=== PATIENT | female | born 1990 | race Two or more races ===

== ENCOUNTER 2022-02-24 06:51 | Outpatient (REF) | payer OTHER, SELFPAY | END 2022-02-24 06:52 | disposition home or self-care (01) | LOC: HO.HOSX 06:51 | PROVIDERS: Visit Provider Physician Assistant | DX: Z13.89 Encounter for screening for other disorder (principal) ==

== ENCOUNTER 2023-04-24 10:30 | Outpatient (REF) | payer OTHER, SELFPAY ==
--- NOTE | ~2023-04-24 | XR_ITS ---
EXAMINATION: XR SHOULDER, LEFT CLINICAL INFORMATION: Left shoulder pain for one year COMPARISON: None available. TECHNIQUE: AP external rotation, Grashey, scapular Y, and axillary views of the left shoulder. FINDINGS: BONES: Bony structures are intact. There is no focal bone destruction or periosteal reaction seen. JOINTS: Alignment of joints is normal. SOFT TISSUE: Soft tissue is normal. No radiopaque foreign body or abnormal air collection is seen. XR/XR shoulder LT min 2V IMPRESSION: 1. Normal x-rays of left shoulder. No fracture or dislocation or signs of osteomyelitis are found.
[2023-04-24 11:35] LABS: MANUAL DIFF FLAG NO
[2023-04-24 11:45] LABS: Basophils Percent Auto 0.5 % (0-2); Eosinophils Percent Auto 0.5 % (0-4); Hematocrit 41.7 % (37.0-47.0); Hemoglobin 14.3 g/dl (12.0-16.0); Imm Gran Abs Auto 0.02 X10*3/uL (0.00-0.03); Imm Gran Pct Auto 0.4 % (0.0-0.4); Lymphocytes Absolute Auto 1.6 X10*3/uL (1.2-4.9); Lymphocytes Percent Auto 28.2 % (20-40); Mean Corpuscular HGB Conc 34.3 g/dl (31.0-35.0); Mean Corpuscular Hemoglobin 30.7 pg (27.0-33.0); Mean Corpuscular Volume 89.5 fL (80.0-98.0); Mean Platelet Volume 11.3 fL (9.4-12.3); Monocytes Absolute Auto 0.3 X10*3/uL (0.1-1.2); Monocytes Percent Auto 5.8 % (2-11); Neutrophils Absolute Auto 3.7 x10*3/uL (2.0-8.3); Neutrophils Percent Auto 64.6 % (45-73); Platelet Count 190 X10*3/uL (160-400); Red Blood Count 4.66 X10*6/uL (4.20-5.50); Red Cell Distribution Width 12.3 % (11.0-16.0); White Blood Count 5.7 X10*3/uL (4.8-10.8)
[2023-04-24 12:02] LABS: Estimated Average Glucose 97 mg/dL
[2023-04-24 12:08] LABS: Alanine Aminotransferase 24 U/L (0-31); Albumin Level 4.1 g/dL (3.5-5.0); Alkaline Phosphatase 56 U/L (39-117); Anion Gap 11 (12-20); Aspartate Amino Transferase 20 U/L (5-31); Bilirubin Total 0.4 mg/dL (0.0-1.0); Blood Urea Nitrogen 11 mg/dL (9-16); Calcium 9.3 mg/dL (8.4-10.2); Carbon Dioxide 26 mmol/L (22-29); Chloride 105 mmol/L (96-108); Cholesterol 165 mg/dL (<200); Estimated Glomerular Filt Rate > 60; Glucose Random 101 mg/dL (60-115); HDL Cholesterol 61 mg/dL (>40); LDL Cholesterol Calculated 84 mg/dL (<100); Potassium 4.6 mmol/L (3.3-5.1); Sodium 137 mmol/L (135-145); Total Protein 7.4 g/dL (6.5-8.0); Triglycerides 103 mg/dL (<150)
[2023-04-24 12:17] LABS: HIV AB/AG Nonreactive (Nonreactive); HIV Num 1 0.06 S/CO (0.00-0.99)
[2023-04-24 12:24] LABS: TSH reflex Free T4 0.72 uIU/mL (0.32-4.0)
[2023-04-25 14:24] LABS: HCV Log PCR <1.18 NOT DETECTED Log IU/mL (NOT DETECTED); HepC Viral Load <15 NOT DETECTED IU/mL (NOT DETECTED)
[2023-04-25 16:14] LABS: RPR Rapid Plasma Reagin NON-REACTIVE (NON-REACTIVE)
== END 2023-04-24 10:31 | disposition home or self-care (01) ==
LOC: HO.HHCL 10:30
PROVIDERS: Visit Provider Registered Nurse
DX: Z00.00 Encounter for general adult medical examination without abnormal findings (principal)
CPT/HCPCS: 36415; 73030; 80053; 80061; 83036; 84443; 85025; 86592; 87389; 87522

== ENCOUNTER 2023-07-20 14:09 | Outpatient (AMB) | payer OTHER, SELFPAY ==
--- NOTE | 2023-07-20 14:23 | MHC.OFFVIS ---
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 States last year while lifting a 24 pack of soda pack, she felt pain days after and felt better with in the following 6 months. Recently she is feeling the same pain while doing heavy lifting lifting at work. Seen with her PCP who ordered P.T and was doing well. She has pain mostly when sleeping. States she has not reported this to work. She is also using lido patches which helps a little. 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 She reports she was lifting a pack of 24 soda bottles about a year ago and felt pain in her shoulder. She states she had improvement in her pain over the next 6 months however her pain returned recently which comes with doing heavy lifting at work. She was seen by her PCP who ordered physical therapy which she attended as instructed. She currently states she has pain in her shoulder which is aggravated at night. She finds mild relief with lidocaine patches. 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 [facility] Surgical History (Updated 07/20/23 @ 14:30 by ALEKSANDAR Miller) Hx of appendectomy Social History (Updated 07/20/23 @ 14:29 by ALEKSANDAR Miller) Current occupational status: employed Current occupation: [employer]/ rt hand Review of Systems Const All systems reviewed & are unremarkable except as noted in HPI and below Physical Exam Vital Signs: BMI result Body Mass Index 34.7 Const General: cooperative, healthy appearing, comfortable, no acute distress, well developed and alert Orientation/consciousness: patient oriented x3 HEENT Head: Yes normal to inspection, Yes normocephalic and Yes atraumatic Eyes General: appearance normal, both eyes and all related structures Resp Effort & Inspection: normal respiratory effort and able to speak in complete sentences Cardio Rate: regular rate Peripheral pulses: Peripheral pulses 2+ throughout GI Palpation (GI): Soft to palpation Skin Lesions: no lesions Rashes: no rashes Neuro General: patient oriented x3 Extrem Other: Left shoulder normal to inspection. Tenderness over the bicipital groove and along the deltoid region of the shoulder. Forward flexion to 100, external rotation to 90, internal rotation to S1. 5/5 RTC strength. Positive Gómez. NVI. Office Procedures Joint Injection/Drain Joint Injection/Drain Primary Site: left shoulder Prep: site was prepped using aseptic technique, ethochloride spray was applied and injection warnings given Injected: 80 mg of, DepoMedrol, with 8 mL of, 1% plain lidocaine and in the subcromial space Approach Used: posterolateral Procedure: The patient tolerated the procedure well and there was some relief with the local anesthesia Coding 01224 - Glenohumeral/Tronchanteric Bursa/Intraarticular Procedure code (CPT) selection complete Results Reviewed Results Reviewed: XR shoulder LT min 2V 04/24/23 IMPRESSION: 1. Normal x-rays of left shoulder. No fracture or dislocation or signs of osteomyelitis are found. Assessment & Plan Assessment & Plan (1) Bursitis of left shoulder: Code(s): M75.52 - Bursitis of left shoulder Category: Medical Plan We discussed options today which include steroid injection. They did consent to move forward with the left shoulder injection, which was tolerated well. I recommended rest, ice and elevation and OTC anti-inflammatories PRN for discomfort. If symptoms persist or worsens over the next 6-8 weeks, patient will contact the office, otherwise follow-up as needed. Patient Instructions: Scribed for Kandice Ogden PA-C, by Leander Villavicencio district medical examiner, on 07/20/2023 at 2:30 PM EST. IKandice PA-C, have personally reviewed and agree with the information entered by the scribe. Coding Level of Care Code New Pt Level 3 (68490) Diagnoses Bursitis of left shoulder M75.52 CPT Codes Coding - Joint 7: 75417 - Glenohumeral/Tronchanteric Bursa/Intraarticular ([id number])
[2023-07-20 14:24] VITALS: BMI 34.7
== END 2023-07-20 14:57 | disposition home or self-care (01) ==
PROVIDERS: PCP Registered Nurse; Visit Provider Physician Assistant
DX: M75.52 Bursitis of left shoulder (principal)
CPT/HCPCS: 20610; 99203

== ENCOUNTER → 2023-07-20 14:09 | Outpatient (BNVA) | payer OTHER, SELFPAY | PROVIDERS: PCP Registered Nurse; Visit Provider Physician Assistant | DX: M75.52 Bursitis of left shoulder (principal) | CPT/HCPCS: 20610; 99202; J1010 ==

== ENCOUNTER 2023-07-31 17:51 | Outpatient (REF) | payer OTHER, SELFPAY ==
[2023-08-08 06:09] LABS: C. trachomatis RNA TMA NOT DETECTED (NOT DETECTED); N. gonorrhoeae RNA TMA NOT DETECTED (NOT DETECTED)
[2023-08-08 12:49] LABS: HPV mRNA E6/E7 rflx Not Detected (Not Detected)
[2023-08-08 13:42] LABS: Trichomonas (NAAT) NOT DETECTED (NOT DETECTED)
== END 2023-07-31 17:52 | disposition home or self-care (01) ==
LOC: HO.HHCLNP 17:51
PROVIDERS: Visit Provider Registered Nurse
DX: Z12.4 Encounter for screening for malignant neoplasm of cervix (principal)
CPT/HCPCS: 36415; 87491; 87591; 87624; 87661; 88142

== ENCOUNTER 2024-04-09 05:44 | Outpatient (REF) | payer OTHER, SELFPAY ==
--- NOTE | 2024-04-09 | EMG_ITS ---
FINDINGS: Bilateral median and ulnar motor and sensory studies were performed. Bilateral radial sensory and median and lateral antecubital brachial sensory studies were performed and paraspinal muscles were tested with a needle. 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 MD MARCOS Florez/CAPRICE / [phone]
== END 2024-04-09 05:45 | disposition home or self-care (01) ==
LOC: HO.NEURO 05:44
PROVIDERS: PCP Registered Nurse; Visit Provider Registered Nurse
DX: R20.0 Anesthesia of skin (principal); R20.2 Paresthesia of skin
CPT/HCPCS: 95886; 95913

== ENCOUNTER 2024-04-18 08:57 | Outpatient (REF) | payer OTHER, SELFPAY ==
--- OUTSIDE RECORDS SUMMARY | 2024-04-18 11:52 | XMS_ITS | Encounter Summary ---
Author Organization [employer] [facility] Address [address] [place] [address] Care Team Providers Care Separations Scientist Name Role Phone Rosalia Pillai Primary Care Provider Encounter Details Date Type Department Care Team (Late Contact Info) Description 06/06/2022 Telephone [facility] [address] [place], [place] [phone] Rosalia Pillai FNP [address] [place], [place] [phone] Social History Tobacco Use Types Packs/Day Years Used Date Smoking Tobacco: Never Smokeless Tobacco: Never Comments Unknown Sex and Gender Information Value Date Recorded Sex Assigned at Female 01/17/2022 10:40 AM EDT Legal Sex Female 10:40 AM EDT Gender Identity Female 01/17/2022 10:40 AM EDT Sexual Orientation Straight 03/18/2024 9: 55 AM EST COVID-19 Exposure Response Date Recorded In the last 10 days, have yo u been in contact with someone who was confirmed or suspected to have Coronavirus/COVID-19? No / Unsure 06/06/2022 4:36 PM EDT documented as of this encounter Plan of Treatment Upcoming Encounters Date Type Department Care Team (Late Contact Info) Description 05/03/2024 10:00 AM EST Office Visit [facility] [address] [place], [place] [phone] Rosalia Pillai FNP [address] [place], [place] [phone] documented as of this encounter Visit Diagnoses Not on filedocumented in this encounter Care Teams Separations Scientist Relationship Specialty Start Date End Date Rosalia Pillai FNP [address] [place] [phone] PCP - General Family Medicine 02/17/22 documented as of this encounter
--- OUTSIDE RECORDS SUMMARY | 2024-04-18 11:52 | XMS_ITS | Clinical Summary ---
Author Organization [employer] Address [address] [place] [address] Care Team Providers Care Poultry Field Service Technician Name Role Phone Rosalia Pillai CARROLL Primary Care Provider [phone] Allergies No known active allergies Medications Magnesium 400 MG capsule Take 400 mg by mouth at bedtime. 90 capsule 2 4 Active lidocaine (Lidoderm) 5 % patchIndications: Acute pain of left shoulder Apply 1 patch topically if needed each day for moderate pain. Remove & discard patch within 12 hours or as directed by MD. 30 patch 11 4 Active naproxen (Naprosyn) 500 MG tabletIndications :Acute pain of left shoulder Take a tab twice daily with food for 5-7 days, then take up to BID as needed for pain 60 tablet 4 Active famotidine (Pepcid) 20 MG tabletIndications :Gastroesophageal reflux disease, unspecified whether esophagitis present Take 1 tablet (20 mg) by mouth 2 times daily. 180 tablet 3 4 07/31/19 25 Active baclofen (Lioresal) 10 MG tabletIndications :Neck muscle spasm Take one tablet TID PRN 30 tablet 4 Active SUMAtriptan (Imitrex) 25 MG tabletIndications :Other migraine without status migrainosus, not intractable Take 1-2 tablets (25-50 mg) by mouth 1 (one) time if needed for migraine for up to 9 doses. May repeat dose once in 2 hours if no relief. Do not exceed 2 doses in 24 hours. 9 tablet 4 Active lidocaine-priloca ine (Emla) 2.5-2.5 % creamIndications: Chronic right shoulder pain Apply thin layer 2-3 times per day to right shoulder as needed for pain 30 g 3 4 Active doxepin (SINEquan) 10 MG capsuleIndication s:Sleep difficulties Take 1 capsule (10 mg) by mouth at bedtime. 90 capsule 1 4 03/18/20 25 Active ibuprofen 800 MG tabletIndications :Neck muscle spasm Take 1 tablet (800 mg) by mouth 3 times daily for 14 days. 42 tablet 4 03/22/19 25 Diclofenac Sodium 1 % gelIndications:Ne ck muscle spasm Apply 1 g topically if needed in the morning, at noon, and at bedtime (pain). 100 g 4 04/07/19 25 Active Problems Problem Noted Date Diagnosed Date Healthcare maintenance 04/23/2023 Overview (03/21/2024): Pap: NILM, HPV neg 07/31/23 Optometry: referral to [facility] placed 04/21/23 Dental: referral to [facility] Dental 04/21/23 Last PE: 04/21/23 Migraine 01/30/2022 Assessment & Plan (07/31/2023 10:03 AM EDT): -Maintenance: magnesium 400mg nightly -Episodic tx: trial sumatriptan 25-50mg PRN. Reviewed med use and SE -Previous med trials: excedrin, amitriptyline Assessment & Plan (04/23/2023 8:44 AM EST): -Daily headaches, using excedrin -Will trial magnesium 400mg nightly -previously noted benefit with amitriptyline documented in EHR, but appears pt no longer taking. If magnesium not effective, may re-trial amitriptyline Dysmenorrhea 09/18/2015 Resolved Problems Problem Noted Date Diagnosed Date Resolved Date Gallstones 09/18/2015 04/23/2023 Encounters Date Type Department Care Team Description 03/22/2024 [facility] [facility] [employer] [facility] [address] [place] [phone] Rosalia Pillai FNP 03/18/2024 11:30 AM EST Office Visit [facility] [address] [place] [address] Artur Pillaile, LEATHER CRAFTER Chronic right shoulder pain (Primary Dx); Onychauxis; Callus between toes; Numbness and tingling in both hands; Sleep difficulties; Other fatigue; Healthcare maintenance 03/18/2024 Travel 03/18/2024 Telephone [facility] [address] [place] [address] Rachael Masters MA Chart Prep 03/08/2024 3:40 PM EST Office Visit [facility] [address] [place] [address] Lucila Malik NP Neck muscle spasm (Primary Dx); Other migraine without status migrainosus, not intractable 03/08/2024 Travel from Last 3 Months Immunizations Name Administration Dates Next Due Influenza, IIV3, injectable 12/24/2019, 8 Pfizer Covid-19 Vaccine 12+ 04/07/2020, 0 Tdap 04/20/2018,09/18/2015 Family History Medical History Relation Name Comments Pancreatic cancer Maternal Grandfather Eye cancer Maternal Grandmother Hypothyroidism Maternal Grandmother Diabetes type II Mother Hypothyroidism Mother bariatric surgery Mother Diabetes type II Mother's Sister Breast cancer Paternal Grandmother Diabetes Paternal Grandmother Hypothyroidism Sister Relation Name Status Comments Maternal Grandfather Maternal Grandmother Mother Mother's Sister Paternal Grandmother Sister Social History Tobacco Use Types Packs/Day Years Used Date Smoking Tobacco: Never Passive Smoke Exposure: Never Smokeless Tobacco: Never Tobacco Cessation:Counseling Given: Not Answered Depression Answer Date Recorded Patient Health Questionnaire-9 Score 15 04/21/2023 Patient Health Questionnaire-9 Score 15 04/21/2023 Last PHQ-9: Questionnaire Data Not on file 0 04/21/2023 Housing Stability Answer Date Recorded What is your housing situation today? I have sebastián savage 04/12/[address] you li ve. Do you have problems with any of the following? None of the above 04/12/2023 Food Insecurity Answer Date Recorded Within the past 12 months, y ou worried that your food would run out before you got money to buy more: Sometimes True 2023 Within the past 12 months,th e food you bought just didn't last and you didn't have enough money to get more: Sometimes True 04/12/2023 Transportation Answer Date Recorded In the past 12 months, has l ack of transportation kept you from medical appts, meetings, work or from getting things needed for daily living? No 04/12/2023 Utilities Answer Date Recorded In the past 12 months, has t he electric, gas, oil or water company threatened to shut off services in your home? No 04/12/2023 Depression Answer Date Recorded Patient Health Questionnaire-2 Score 2 04/21/2023 Comments Unknown Sex and Gender Information Value Date Recorded Sex Assigned at Female 01/17/2022 10:40 AM EDT Legal Sex Female 10:40 AM EDT Gender Identity Female 01/17/2022 10:40 AM EDT Sexual Orientation Straight 03/18/2024 9: 55 AM EST Last Filed Vital Signs Vital Sign Reading Time Taken Comments Blood Pressure 117/75 03/18/2024 11:30 AM EST Pulse 80 03/18/2024 11:30 AM EST Temperature 36.4 ??C (97.5 ??F) 03/18/2024 11:[address] Respiratory Rate 20 03/18/2024 11:30 AM EST Oxygen Saturation 98% 03/18/2024 11:30 AM EST Inhaled Oxygen Concentration - - Weight 97.1 kg (214 lb) 03/18/2024 11:30 AM EST Height 167.6 cm (5' 6 ) 03/18/2024 11:30 AM EST Body Mass Index 34.54 03/18/2024 11:30 AM EST Plan of Treatment Upcoming Encounters Date Type Department Care Team (Late st Contact Info) Description 05/03/2024 10:00 AM EST Office Visit [facility] [address] [place] [address] Rosalia Pillai FNP [address] [place] [address] Health Maintenance Due Date Last Done Comments Dental Oral Exam 1989 Dental Prophylaxis 1989 Dental X-Ray: Bitewings 1989 Dental X-Ray: Full Mouth 1989 Family Planning (PISQ) 02/15/2004 Hepatitis B Vaccines (1 of 3 - 19+ 3-dose series) 02/15/2008 Depression Monitoring (PHQ-9) 10/20/2023, 04/21/2023 Alcohol/Substance Use Screening 04/21/2024 04/21/2023 Depression Screening 04/21/2024 04/21/2023, 04/21/2023 SDOH Screening 04/21/2024 04/21/2023 Tobacco Screening 07/30/2024 07/31/2023 Influenza Vaccine (#1) 2024 , 12/15/2017 Postponed from 11/19/2023 (Patient Refused) COVID-19 Vaccine (3 - 2023-2 5 season) 2025 04/07/2020, 03/17/2020 Postponed from 11/19/2023 (Patient Refused) Pap Smear 07/30/2026 07/31/2023, 07/31/2023 DTaP/Tdap/Td Vaccines (3 - T d or Tdap) 04/20/2028 04/20/2018, 09/18/2015 Lipid Panel 04/24/2028 04/24/2023, 01/31/2022 Cervical Cancer Screening 07/30/2028 HPV/Cotest 07/30/2028 07/31/2023 Zoster Vaccines (1 of 2) 2039 RSV Patients and Patients Aged 60 years or older (1 - 1-dose 75+ series) 02/15/2064 HIV Screening Completed 04/24/2023, 01/31/2022, 11/18/2021 Hepatitis C Screening Completed 04/24/2023 , 01/31/2022 HIB Vaccines Aged Out No longer eligi ble based on patient's age to complete this topic HPV Vaccines Aged Out No longer eligi ble based on patient's age to complete this topic Hepatitis A Vaccines Aged Out No long er eligible based on patient's age to complete this topic IPV Vaccines Aged Out No longer eligi ble based on patient's age to complete this topic Meningococcal Vaccine Aged Out No eric michael eligible based on patient's age to complete this topic Pneumococcal Vaccine: Pediatrics (0 to 5 Years) and At-Risk Patients (6 to 49) Years) Aged Out No longer eligible b ased on patient's age to complete this topic RSV under 20 months Aged Out No longe r eligible based on patient's age to complete this topic Rotavirus Vaccines Aged Out No longer eligible based on patient's age to complete this topic Procedures Procedure Name Priority Date/Time Associated Diagnosis Comments HPV MRNA E6/E7 REFLEX TO HPV 16, 18/45 Routine 07/31/2023 9:51 AM EDT IMAGE-GUIDED PAP W/AGE BASED SCR,W/CT/NG/TRICH Routine 07/31/2023 9:51 AM EDT Encounter for screening for cervical cancer HEPATITIS C VIRAL RNA, QUANTITATIVE, REAL-TIME PCR Routine 04/24/2023 10:36 AM EST Encounter for routine history and physical examination of adult HIV 1/2 ANTIGEN/ANTIBODY, FOURTH GENERATION W/RFL Routine 04/24/2023 10:36 AM EST Encounter for routine history and physical examination of adult LIPID PANEL, STANDARD Routine 04/24/2023 10:36 AM EST Encounter for routine history and physical examination of adult from Last 3 Months or Most Recently Relevant to Health Maintenance Results * Pap with NG,CT,Trich (07/31/2023 9:51 AM EDT) Trichomonas (NAAT) NOT DETECTED NOT DETECTED [facility] Comment:The analytical perfo rmance characteristics of thisassay have been determined by [employer]. Themodifications have not been cleared or approved bythe FDA. This assay has been validated pursuant to theCLIA regulations and is used for clinical purposes.For additional information, please refer tohttp://education.[employer]faq/Trichomonastma(This link is being provided for information/educational purposes only.)THIS TEST WAS PERFORMED AT:[facility] [place] [id number] FRANK MD CTNG Ref Lab NOT DETECTED NOT DETECTED [facility] NG Ref Lab NOT DETECTED NOT DETECTED [facility] Pap Vial Vaginal structure / Unknown 07/31/2023 9:51 AM EDT 08/04/2023 12:13 PM EDT Narrative [facility] - 08/08/2023 1:42 PM EDT Was previous PAP abnormal? NoClinical Information: NoneCollection Date: [id number]: [id number] by: RACHAEL Shannon: Vagina us Rosalia Pillai [facility] CYTOLOGY ORDERABLES Final Result [facility] [address] [place] [address] [phone] * HPV mRNA E6/E7 w/Reflex to HPV Genotypes 16, 18/45 (07/31/2023 9:51 AM EDT) HPV nRNA E6/E7 Not Detected Not Detected [facility] Comment:Methodology: Transcr iption-Mediated AmplificationThis assay detects E6/E7 viral messenger RNA (mRNA) from 14high-risk HPV types (16,18,31,33,35,39,45,51,52,56,58,59,66,68).Cervical sources are required for HPV testing.If a vaginal source from a patient who has had atotal hysterectomy with removal of cervix wassubmitted, please contact the testing laboratoryfor alternative testing options.For additional information, please refer tohttp://education.[employer]faq/YDI840o7(This link if provided for information/educational purposes only.)THIS TEST WAS PERFORMED AT:[facility] [place] [id number] FRANK MD HPV mRNA E6/E7 [facility] HPV 16 RNA [facility] HPV 18/45 RNA [facility] 07/31/2023 9:51 AM EDT 08/01/2023 8:45 AM EDT us Rosalia Pillai [facility] CYTOLOGY ORDERABLES Final Result Performing Organization Address [facility] [[email or web address]] Co de Phone Number [facility] [address] [place] [phone] * Hepatitis C Viral RNA, Quantitative, Real-Time PCR (04/24/2023 10:36 AM EST) Pathologist [facility] Hepatitis C Viral Load <15 NOT DETECTED NOT DETECTED IU/mL [facility] HCV Log PCR <1.18 NOT DETECTED NOT DETECTED Log IU/mL [facility] Comment:This test was perfor med using Real-Time Polymerase ChainReaction.Reportable Range: 15 IU/mL to 100,000,000 IU/mL(1.18 Log IU/mL to 8.00 Log IU/mL).The analytical performance characteristics of thisassay have been determined by [employer].The modifications have not been cleared or approved bythe FDA. This assay has been validated pursuant to theCLIA regulations and is used for clinical purposes.For more information on this test, go to:http://education.[employer]faq/FGC98w1(This link is being provided for informational/educational purposes only.)THIS TEST WAS PERFORMED AT:[facility] [place] [id number] FRANK MD Blood 04/24/2023 10:3 6 AM EST 04/24/2023 11:23 AM EST Rosalia Pillai [facility] BLOOD ORDERABLES Final Res ult Performing Organization Address City/[facility]/ZIP Co de Phone Number [facility] [address] [place] [phone] * HIV-1/2 Antigen and Antibodies, Fourth Generation, with Reflexes (04/24/2023 10:36 AM EST) Pathologist [facility] HIV AB/AG Nonreactive Nonreactive [facility] Comment:HIV-1 p24 Ag and/or HIV-1/HIV-2 Ab not detected.A test result that is nonreactive does not exclude thepossibility of exposure to or infection with HIV-1 and/orHIV-2. Nonreactive results in this assay for individualswith prior exposure to HIV-1 and/or HIV-2 may be due toantigen and antibody levels that are below the limit ofdetection of this assay.The [employer] HIV Ag/Ab Combo assay result andsupplemental assay results should be interpreted inconjunction with the patient's clinical presentation,history and other laboratory results. If the results areinconsistent with clinical evidence, additional testing issuggested to confirm the result. Blood Venous blood specimen / Unknown 04/24/2023 10:36 AM EST 04/24/2023 11:23 AM EST us Rosalia Pillai [facility] BLOOD ORDERABLES Final Res ult [facility] [address] [place] [address] [phone] * Lipid Panel, Standard (04/24/2023 10:36 AM EST) Triglycerides 103 <150 mg/dL [facility] Comment:Desirable Triglyceri de: less than 150 mg/dLBorderline High Triglyceride 150-199 mg/dLHigh Triglyceride: 200-499 mg/dLVery High Triglyceride: greater than or equal to 5OO mg/dL Cholesterol 165 <200 mg/dL [facility] Comment:Desirable Cholestero l: less than 200 mg/dLBorderline High Cholesterol: 200-239 mg/dLHigh Cholesterol: greater than 239 mg/dL LDL Cholesterol Calculated 84 <100 mg/dL [facility] Comment:Desirable LDL: less than 100 mg/dLNear Optimal/Above Optimal LDL: 110- 129 mg/dLBorderline High LDL: 130-159 mg/dLHigh LDL: 160-189 mg/dLVery High LDL: greater than or equal to 190 mg/dL HDL Cholesterol 61 >40 mg/dL [facility] Comment:Desirable HDL: great er than 40 mg/dL Note: This HDL assay may give artificially low results in patients with liver disease. Blood Venous blood specimen / Unknown 04/24/2023 10:36 AM EST 04/24/2023 11:23 AM EST us Rosalia Pillai [facility] BLOOD ORDERABLES Final Res ult [facility] [address] [place] [address] [phone] from Last 3 Months or Most Recently Relevant to Health Maintenance Insurance [facility] D[facility] - HSN FULL (MEDICAID) Care Teams Poultry Field Service Technician Relationship Specialty Start Date End Date Rosalia Pillai FNP [address] [place] [phone] PCP - General Family Medicine 02/17/22
--- OUTSIDE RECORDS SUMMARY | 2024-04-18 11:52 | XMS_ITS | Encounter Summary ---
Author Organization [employer] Address [address] [facility] 7t [place] [address] Care Team Providers Care Salon Professional Name Role Phone Rosalia Pillai Primary Care Provider [phone] Encounter Details Date Type Department Care Team (Late st Contact Info) Description 03/22/2024 Telephone [employer] [facility] [address] [place] [address] Rosalia Pillai FNP [address] [facility] [place] [id number] Social History Tobacco Use Types Packs/Day Years Used Date Smoking Tobacco: Never Passive Smoke Exposure: Never Smokeless Tobacco: Never Depression Answer Date Recorded Patient Health Questionnaire-9 [...] Orientation Straight 03/18/2024 9: 55 AM EST documented as of this encounter Plan of Treatment Upcoming Encounters Date Type Department Care Team (Late st Contact Info) Description 05/03/2024 10:00 AM EST Office Visit [facility] MED & PEDS [address] [place] [address] Rosalia Pillai FNP [address] [place] [address] documented as of this encounter Visit Diagnoses Not on filedocumented in this encounter Additional Health Concerns Assessment Noted Time PHQ-9 Depression Total Score: 15 024 9:46 AM EST documented as of this encounter Care Teams Salon Professional Relationship Specialty Start Date End Date Rosalia Pillai FNP [address] [place] [address] PCP - General Family Medicine 02/17/22 documented as of this encounter
--- OUTSIDE RECORDS SUMMARY | 2024-04-18 11:52 | XMS_ITS | Encounter Summary ---
Author Organization [employer] Address [address] [place] [address] 7 [place] [address] Care Team Providers Care Machinist Instructor Name Role Phone Rosalia Pillai Primary Care Provider [phone] Reason for Referral * Neurology (Routine) - Closed Specialty Diagnoses / Procedures Referred By Alice guardado Referred To Contact Diagnoses Numbness and tingling in both hands Procedures EMG Rosalia Pillai FNP [address] [place] [address] Phone: tel: fax: [address] Phone: tel: fax: Referral ID Status Reason Start Date Expiration Date Visits Re quested Visits Authorized [id number] Closed 03/18/2024 03/18/2025 1 1 * Consultation (Routine) - Authorized Specialty Diagnoses / Procedures Referred By Alice guardado Referred To Contact Orthopaedic Surgery Diagnoses Chronic right shoulder pain Rosalia Pillai FNP [address] [place] [address] Phone: tel: fax: [facility] [address] [place] [address] Phone: tel: Referral ID Status Reason Start Date Expiration Date Visits Requested Visits Authorized [id number] Authorized Specialty Services Required 03/18/2025 1 1 * Consultation (Routine) - Authorized Specialty Diagnoses / Procedures Referred By Alice guardado Referred To Contact Podiatry Diagnoses Onychauxis Callus between toes Rosalia Pillai FNP [address] [place] [address] Phone: tel: fax: Kojo Walker DPM [address] [address] Phone: tel: fax: Referral ID Status Reason Start Date Expiration Date Visits Requested Visits Authorized [id number] Authorized Specialty Services Required 03/18/2025 1 1 Encounter Details Date Type Department Care Team ([facility] Contact Info) Description 03/18/2024 11:30 AM EST Office Visit [facility] MED & PEDS [address] [place] [address] Rosalia Pillai FNP [address] [place] [address] Chronic right shoulder pain (Primary Dx); Onychauxis; Callus between toes; Numbness and tingling in both hands; Sleep difficulties; Other fatigue; Healthcare maintenance Social History Tobacco Use Types Packs/Day Years [...] AM EST documented as of this encounter Last Filed Vital Signs Vital Sign Reading [...] Mass Index 34.54 03/18/2024 11:30 AM EST documented in this encounter Progress Notes * CARROLL Díaz - 03/18/2024 11:30 AM EST Subjective: Hiral Geller is a 34 y.o. female who presents to the office for a follow up visit. Interim history: Last PCP visit: 07/31/23 for pap Current concerns: Sleep: difficulties with sleep onset and maintenance. Has used magnesium in the past with partial improvement. Right shoulder: pain and discomfort of right shoulder x 3-4 months. Has completed physical therapy for left shoulder, and currently doing exercises at home for right shoulder, but not improving. Interested in ortho consult. Will also prescribe topical lidocaine-prilocaine as has been using OTC lidocaine patches with good effect. Numbness and tingling of fingers of bilateral hands x months. Worsens at night. Right foot: thickening of skin between 4th and 5th digits. Intermittent drainage/pus from area. Also with thickness and discoloration of toe nail 5th digit. Referral to podiatry placed. Past Surgical History: Procedure Laterality Date APPENDECTOMY CHOLECYSTECTOMY Family History Problem Relation Hypothyroidism Mother Other (bariatric surgery) Mother Diabetes type II Mother Hypothyroidism Sister Diabetes type II Mother's Sister Hypothyroidism Maternal Grandmother Eye cancer Maternal Grandmother Pancreatic cancer Maternal Grandfather Breast cancer Paternal Grandmother Diabetes Paternal Grandmother Allergies - NKDA Social History Living - lives with her daughter Employment - [employer] Substance Use - occasional/social alcohol use, denies use of tobacco, opioids, or other substances Sexual history - not current, previous AMAB partner Mental health - denies SI/HI/thoughts of self harm. Protective factors: daughter and samaritan Patient's last menstrual period was 03/04/2024. Reports menses occur every 28-32 days and last for 5-6 days on average. Review of Systems Constitutional: Negative for chills and fever. Respiratory: Negative for cough and wheezing. Cardiovascular: Negative for chest pain and palpitations. Gastrointestinal: Negative for diarrhea, nausea and vomiting. Musculoskeletal: Positive for arthralgias. Negative for joint swelling, neck pain and neck stiffness. Psychiatric/Behavioral: Positive for sleep disturbance. Visit Vitals BP 117/75 (BP Location: Left arm, Patient Position: Sitting, BP Cuff Size: Large adult) Pulse 80 Temp 97.5 ??F (36.4 ??C) (Oral) Resp 20 Ht 5' 6 (1.676 m) Wt 214 lb (97.1 kg) LMP 03/04/2024 SpO2 98% BMI 34.54 kg/m?? Smoking Status Never BSA 2.13 m?? Physical Exam Constitutional: Appearance: Normal appearance. HENT: Head: Atraumatic. Right Ear: External ear normal. Left Ear: External ear normal. Cardiovascular: Rate and Rhythm: Normal rate and regular rhythm. Pulmonary: Effort: Pulmonary effort is normal. Breath sounds: Normal breath sounds. Musculoskeletal: Right shoulder: Tenderness present. No swelling or deformity. Normal range of motion. Comments: Tenderness of right shoulder AC joint. Mild discomfort with shoulder flexion. Skin: Comments: 5th digit right foot: toe nail thickening and discoloration Hypertrophic skin between 4th and 5th digits right foot Neurological: Mental Status: She is alert and oriented to person, place, and time. Psychiatric: Mood and Affect: Mood normal. Behavior: Behavior normal. Problem List Items Addressed This Visit Visit Diagnoses Chronic right shoulder pain - Primary - Not improving despite home PT exercises - Discussed options including XR vs referral to ortho or PT - Shared decision making to proceed with Ortho referral - Cont symptomatic management Relevant Medications lidocaine-prilocaine (Emla) 2.5-2.5 % cream Other Relevant Orders Referral to Orthopaedic Surgery Onychauxis -Included in referral to podiatry Relevant Orders Referral to Podiatry Callus between toes -Between 4th and 5th digits right foot, intermittent symptoms of infection. Referral to podiatry for further eval. Relevant Orders Referral to Podiatry Numbness and tingling in both hands EMG ordered for initial eval Relevant Orders EMG Sleep difficulties - Start doxepin 10mg nightly - Reviewed med safety and SE - Cont sleep hygiene interventions Relevant Medications doxepin (SINEquan) 10 MG capsule Other Relevant Orders TSH W/Reflex to FT4 Comprehensive Metabolic Panel Vitamin D, 25-Hydroxy, Total, Immunoassay Vitamin B12/Folate, Serum Panel CBC auto differential Cortisol Random Other fatigue - Labs including request for cortisol ordered - No acute changes noted Relevant Orders TSH W/Reflex to FT4 Comprehensive Metabolic Panel Vitamin D, 25-Hydroxy, Total, Immunoassay Vitamin B12/Folate, Serum Panel CBC auto differential Cortisol Random Follow up: 6 weeks sleep, sooner PRN documented in this encounter Plan of Treatment Upcoming Encounters Date Type Department Care Team (Late st Contact Info) Description 05/03/2024 10:00 AM EST Office Visit [facility] MED & PEDS [address] [place] [address] Rosalia Pillai FNP [address] [place] [address] Scheduled Orders Name Type Priority Associated Diagnoses Orde r Schedule EMG Neurology Routine Numbness and tingling in both hands Expected: 03/18/2024, Expires: 09/16/2024 TSH W/Reflex to FT4 Lab Routine Sleep difficulties Other fatigue Expected: 03/18/2024 (Approximate), Expires: 03/18/2025 Comprehensive Metabolic Panel Lab Routine Sleep difficulties Other fatigue Expected: 03/18/2024 (Approximate), Expires: 03/18/2025 Vitamin D, 25-Hydroxy, Total, Immunoassay Lab Routine Sleep difficulties Other fatigue Expected: 03/18/2024 (Approximate), Expires: 03/18/2025 Vitamin B12/Folate, Serum Panel Lab Routine Sleep difficulties Other fatigue Expected: 03/18/2024, Expires: 03/18/2025 CBC auto differential Lab Routine Sleep difficulties Other fatigue Expected: 03/18/2024 (Approximate), Expires: 03/18/2025 Cortisol Random Lab Routine Sleep difficulties Other fatigue Expected: 03/18/2024 (Approximate), Expires: 03/18/2025 Scheduled Referrals Name Type Priority Associated Diagnoses Order Schedule Referral to Podiatry Outpatient Referral Routine Onychauxis Callus between toes Expected: 03/18/2024 (Approximate), Expires: 03/18/2025 Referral to Orthopaedic Surgery Outpatient Referral Routine Chronic right shoulder pain Expected: 03/18/2024 (Approximate), Expires: 03/18/2025 documented as of this encounter Visit Diagnoses Diagnosis Chronic right shoulder pain- Primary Pain in joint, shoulder region Onychauxis Other specified disease of nail Callus between toes Numbness and tingling in both hands Sleep difficulties Other fatigue Healthcare maintenance documented in this encounter Additional Health Concerns Assessment Noted Time PHQ-9 Depression Total Score: 15 024 9:46 AM EST documented as of this encounter Care Teams Machinist Instructor Relationship Specialty Start Date End Date Rosalia Pillai FNP [address] [place] [address] PCP - General Family Medicine 02/17/22 documented as of this encounter
--- OUTSIDE RECORDS SUMMARY | 2024-04-18 11:52 | XMS_ITS | Clinical Summary ---
Author Organization [address] [facility] Address [address] [place] [address] Phone Care Team Providers Care Monkey Trainer Name Role Phone Unavailable Primary Care Provider Unavailabl e Allergies No known active allergies Medications Medication Sig Dispensed Refills Start Date End Date Status ibuprofen (ADVIL,MOTRIN) 600 mg tablet Take 600 mg by mouth every 6 hours as needed. Active omeprazole magnesium (PRILOSEC ORAL) Take by mouth. Activ e Social History Tobacco Use Types Packs/Day Years Used Date Smoking Tobacco: Never Assessed Sex and Gender Information Value Date Recorded Sex Assigned at Not on file Gender Identity Not on file Sexual Orientation Not on file Plan of Treatment Upcoming Encounters Date Type Department Care Team ([facility] Contact Info) Description 06/20/2024 9:30 AM EDT Consult Orthopedic Surgery - [place] [address] [phone] Kojo Walker, DPM [address] [address] Health Maintenance Due Date Last Done Comments DTaP,Tdap,and Td Vaccines (1 - Tdap) 02/15/2008 Hepatitis B Vaccines (1 of 3 - 19+ 3-dose series) 02/15/2008 Cervical Cancer Screening: P ap Smear 2010 Depression Screening 02/15/2022 HIV Screening 02/15/2022 Hepatitis C Screening 02/15/2022 Social Influencers of Health Screening 02/15/2022 COVID-19 Vaccine ( - 2023-2 5 season) 2023 Influenza Vaccine (#1) 2023 HIB Vaccines Aged Out No longer eligi [...] on patient's age to complete this topic MMR Vaccines Aged Out No longer eligi ble based on patient's age to complete this topic Meningococcal ACWY Vaccine Aged Out N o longer eligible based on patient's age to complete this topic Pneumococcal Vaccine: Pediat rics (0 to 5 Years) and At-Risk Patients (6 to 64 Years) Aged Out No longer eligible b ased on patient's age to complete this topic RSV Immunization Patients Un gaudencio 20 months Aged Out No longer eligible b ased on patient's age to complete this topic Varicella Vaccines Aged Out No longer eligible based on patient's age to complete this topic
--- OUTSIDE RECORDS SUMMARY | 2024-04-18 11:52 | XMS_ITS | Clinical Summary ---
Author Organization [facility] Address [address] [place] [address] Care Team Providers Care Mangle Press Catcher Name Role Phone Silas Ramirez Primary Care Provider [phone] Source Comments PLEASE NOTE, if this patient is a minor, it may be UNLAWFUL to discuss sensitive information that is contained in these records (such as FAMILY PLANNING, MENTAL HEALTH or SUBSTANCE ABUSE) with the minor patient's parent or other person without the patient's specific authorization.[facility] Allergies No known active allergies Medications ibuprofen (ADVIL,MOTRIN) 600 mg tabletIndications :Flank pain Take 1 Tab by mouth 4 (four) times daily as needed for pain. 60 Tab 1 6 Active omeprazole (PRILOSEC) [address] capsuleIndication s:Generalized abdominal pain Take 1 Cap by mouth every morning before breakfast. Do not crush or chew. 30 Cap 1 6 Active polyethylene glycol (GLYCOLAX, MIRALAX) 17 gram packetIndications :Slow transit constipation Take 17 g by mouth once daily. Dissolve contents of packet in a glass (8 oz) of water. 30 Each 3 6 Active minoxidil (ROGAINE) 2 % external solutionIndicatio ns:Alopecia Apply topically 2 (two) times daily 60 mL 0 7 Active prenat.vits,igor,m an-dhlj-mrvyf per tablet Take 1 Tab by mouth once daily 30 Tab 8 Active acetaminophen (TYLENOL) 500 mg tabletIndications :Acute left-sided low back pain without sciatica Take 2 Tabs by mouth every 6 (six) hours as needed for pain 60 Tab 1 0 Active meloxicam (MOBIC) 7.5 mg tabletIndications :Acute left-sided low back pain without sciatica TAKE 1 TABLET BY MOUTH TWICE DAILY 42 Tab 0 Active SUMAtriptan succinate (IMITREX) 50 mg tabletIndications :Persistent headaches Take 1 Tab by mouth once as needed for migraine for up to 1 dose 30 Tab 0 Active vit-iron fum-folic ac 27 mg iron- 0.8 mg tab Take 1 Tablet by mouth daily 30 Tablet 2 Active Active Problems Problem Noted Date Diagnosed Date History of gestational diabe wali mellitus (GDM), not currently 11/05/2018 Overview (11/05/2018): 11/05/18 - Patient reported that she had an impaired glucose tolerance test at 5 months of . No pharmacological management; lifestyle only and daily blood glucose checks. Family history of diabetes mellitus 11/05/2018 Overview (11/05/2018): 11/05/18 - Patient's mother, paternal grandmother, paternal uncle, and paternal cousin are positive for a history of diabetes. abnormal glucose tolerance of mother 11/05/2018 Overview (11/05/2018): 11/05/18 - Patient was informed that she had glucose intolerance in her 5th trimester of . She is two months post- and was told by a provider that she now has type II diabetes. Class 3 severe obesity due t o excess calories with body mass index (BMI) of 40.0 to 44.9 in adult ([facility]) 09/18/2015 Overview (11/05/2018): 11/05/18 - Patient gave to her first child 2 months ago, is not currently , and has been struggling to obtain exercise regularly given the . Body mass index is 41.34 kg/m??. Counseled on improvement to her Type II diabetes if she loses weight through regular exercise and diet, which she has been adherent too since month 5 of her , when she was determined to have glucose intolerance. Also counseled today on the [facility]'s childcare program, which she will be able to attend in 1 month, when her baby reaches 3 months old. Informed about the wellness center today as well, should the [facility] not work out for her. Gallstones 09/18/2015 Dysmenorrhea 09/18/2015 Immunizations Name Administration Dates Next Due TDAP 09/18/2015 Family History Medical History Relation Name Comments Genetic Diseases/ Defects Brother marfan Genetic Diseases/ Defects Father marfan syndrome Diabetes Mother Hypertension Mother Diabetes Other paternal cousin Diabetes Paternal Grandmother Diabetes Paternal Uncle Relation Name Status Comments Brother Father Mother Other Paternal Grandmother Paternal Uncle Social History Tobacco Use Types Packs/Day Years Used Date Smoking Tobacco: Never Smokeless Tobacco: Never Tobacco Cessation:Counseling Given: Yes Alcohol Use Standard Drinks/Week Comments Yes 0 (1 standard drink = 0.6 oz pur e alcohol) occasional Social Connections Answer Date Recorded Connectedness 0 12/07/2023 Financial Resource Strain Answer Date R ecorded Financial Resource Strain 0 2018 Stress Answer Date Recorded Stress 0 11/05/2018 Physical Activity Answer Date Recorded Physical Activity 0 11/05/2018 Food Insecurity Answer Date Recorded Food 0 12/14/2023 Transportation Needs Answer Date Record ed Transportation 0 11/05/2018 Housing Stability Answer Date Recorded Housing 0 11/05/2018 Safety and Environment Answer Date Julián rded Safety 0 11/05/2018 Utilities Answer Date Recorded Utilities 0 11/05/2018 Employment Answer Date Recorded Stress 0 12/07/2023 Comments No Sex and Gender Information Value Date Recorded Sex Assigned at Female 02/09/2017 10:05 AM PST Legal Sex Female 7:31 AM PDT Gender Identity Female 02/09/2017 10:05 AM PST Sexual Orientation Straight 02/09/2017 10 :05 AM PST 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 Not on file Not on file Last Filed Vital Signs Vital Sign Reading Time Taken Comments Blood Pressure 120/80 11/18/2021 3:33 PM EDT Pulse 89 11/18/2021 3:33 PM EDT Temperature 37.2 ??C (98.9 ??F) 11/18/2021 3:33 PM ED T Respiratory Rate 16 11/12/2021 2:48 PM EDT Oxygen Saturation 95% 11/18/2021 3:33 PM EDT Inhaled Oxygen Concentration - - Weight 96.1 kg (211 lb 14.4 oz) 11/18/2021 3:33 PM EDT Height 167.6 cm (5' 6 ) 11/18/2021 3:33 PM EDT Body Mass Index 34.2 11/18/2021 3:33 PM EDT Plan of Treatment Health Maintenance Due Date Last Done Comments HPV Screening 1989 Hepatitis C Screening 1989 Tobacco Screening 1989 Imm-Hepatitis B (1 of 3 - 19 + 3-dose series) 02/15/2008 Pap Smear 09/17/2018 09/18/2015 Annual Preventive Care Visit 12/04/2018 12/04/2017 Relationship Safety Screening/Counseling 12/04/2018 12/04/2017 Cervical Cancer Screening 01/17/2023 Pap + HPV 01/17/2023 01/17/2018 Lva-YNFEW-17 ( season) 2023 Imm-Influenza (#1) 2023 12/15/2017 Alcohol and Drug Screen 03/20/2024 12/05/19 18, 09/18/2015, 09/18/2015 Depression Annual Screen 03/20/2024 12/04/2017, 07/0 03/2015 Diabetes Screening 11/12/2024 11/12/2021, 0 11/12/2021, 01/31/2020, Additional history exists Hypertension Screening (#1) 11/17/2024 Imm-DTaP/Tdap/Td (3 - Td or Tdap) 04/20/2028 019, 09/18/2015 HIV Screening Completed 11/18/2021 Cervical Ablation/Cold-Knife Conization Discontinued Cervical Cryotherapy Discontinued Colposcopy Discontinued Endometrial Biopsy Discontinued Excision/Leep Discontinued HPV Genotyping Discontinued Vaginal Pap Discontinued Vulvoscopy Discontinued Procedures Procedure Name Priority Date/Time Associated Diagnosis Comments HIV 1/2 AG & AB W/RFLX (4TH GEN) Routine 11/18/2021 4:04 PM EDT Concern about STD in female without diagnosis COMPREHENSIVE METABOLIC PANEL Routine 11/12/2021 3:14 PM EDT History of gestational diabetes from Last 3 Months or Most Recently Relevant to Health Maintenance Results * HIV 1/2 AG & AB W/RFLX (4TH GEN) (11/18/2021 4:04 PM EDT) HIV AG/AB, 4TH GEN NON-REAC TIVE NON-REAC TIVE [facility] Comment: HIV-1 antigen and HIV-1/HIV-2 antibodies were not detected. There is no laboratory evidence of HIV infection. PLEASE NOTE: This information has been disclosed to you from records whose confidentiality may be protected by state law. ??If your state requires such protection, then the state law prohibits you from making any further disclosure of the information without the specific written consent of the person to whom it pertains, or as otherwise permitted by law. A general authorization for the release of medical or other information is NOT sufficient for this purpose. ?? For additional information please refer to http://education.PaperFlies/faq/YWD802 (This link is being provided for informational/ educational purposes only.) The performance of this assay has not been clinically validated in patients less than 2 years old. Blood Blood / Unknown 11/18/2021 4 :04 PM EDT 11/18/2021 4:05 PM EDT Mena Oscar [facility] LAB - BLOOD DRAW Final Re sult [facility] [address] [address], [facility] [address] [address] * COMPREHENSIVE METABOLIC PANEL (11/12/2021 3:14 PM EDT) Pathologist [facility] GLUCOSE 97 65 - 99 mg/dL [facility] Comment: ?Fasting reference interval UREA NITROGEN (BUN) 16 7 - 25 mg/dL [facility] CREATININE (blood) 0.76 0.50 - 0.97 mg/dL [facility] EGFR 107 > OR = 60 mL/min/1 .73m2 [facility] Comment: The eGFR is based on the CKD-EPI 2020 equation. To calculate the new eGFR from a previous Creatinine or Cystatin C result, go to https://www.kidney.org/professionals/ kdoqi/gfr%5Fcalculator BUN/CREATININE RATIO NOT APPLICABLE 6 - 22 [facility] SODIUM 137 135 - 146 mmol/L [facility] POTASSIUM 4.1 3.5 - 5.3 mmol/L [facility] CHLORIDE 102 98 - 110 mmol/L [facility] CARBON DIOXIDE 26 20 - 32 mmol/L [facility] CALCIUM 9.7 8.6 - 10.2 mg/dL [facility] PROTEIN, TOTAL 7.1 6.1 - 8.1 g/dL [facility] ALBUMIN 4.3 3.6 - 5.1 g/dL [facility] GLOBULIN 2.8 1.9 - 3.7 g/dL (calc) [facility] ALBUMIN/GLOBUL IN RATIO 1.5 1.0 - 2.5 (calc) [facility] BILIRUBIN, TOTAL 0.3 0.2 - 1.2 mg/dL [facility] ALKALINE PHOSPHATASE 47 31 - 125 U/L [facility] AST 13 10 - 30 U/L [facility] ALT 18 6 - 29 U/L [facility] Blood Blood / Unknown 11/12/2021 3 :14 PM EDT 11/12/2021 3:15 PM EDT Domo Tovar PA-C LAB - BLOOD DRAW Final Result [facility] [address] [address], [facility] [address] [address] from Last 3 Months or Most Recently Relevant to Health Maintenance Insurance [employer] Care Teams Mangle Press Catcher Relationship Specialty Start Date End Date Silas Ramirez PA [address] [place] [address] PCP - General Internal Medicine 02/15/17
[2024-04-18 14:01] LABS: MANUAL DIFF FLAG NO
[2024-04-18 14:20] LABS: Basophils Percent Auto 0.5 % (0-2); Eosinophils Percent Auto 0.6 % (0-4); Hematocrit 40.7 % (37.0-47.0); Hemoglobin 13.8 g/dl (12.0-16.0); Imm Gran Abs Auto 0.01 X10*3/uL (0.00-0.03); Imm Gran Pct Auto 0.2 % (0.0-0.4); Lymphocytes Absolute Auto 1.8 X10*3/uL (1.2-4.9); Lymphocytes Percent Auto 27.5 % (20-40); Mean Corpuscular HGB Conc 33.9 g/dl (31.0-35.0); Mean Corpuscular Hemoglobin 30.3 pg (27.0-33.0); Mean Corpuscular Volume 89.5 fL (80.0-98.0); Mean Platelet Volume 11.8 fL (9.4-12.3); Monocytes Absolute Auto 0.5 X10*3/uL (0.1-1.2); Monocytes Percent Auto 7.2 % (2-11); Neutrophils Absolute Auto 4.2 x10*3/uL (2.0-8.3); Platelet Count 170 X10*3/uL (160-400); Red Blood Count 4.55 X10*6/uL (4.20-5.50); Red Cell Distribution Width 12.6 % (11.0-16.0); White Blood Count 6.5 X10*3/uL (4.8-10.8)
[2024-04-18 14:43] LABS: Alanine Aminotransferase 23 U/L (0-31); Alkaline Phosphatase 52 U/L (39-117); Anion Gap 10 (12-20); Aspartate Amino Transferase 28 U/L (5-31); Bilirubin Total 0.6 mg/dL (0.0-1.0); Blood Urea Nitrogen 14 mg/dL (9-16); Calcium 8.8 mg/dL (8.4-10.2); Carbon Dioxide 25 mmol/L (22-29); Chloride 109 mmol/L (96-108); Estimated Glomerular Filt Rate > 60; Glucose Random 91 mg/dL (60-115); Potassium 4.5 mmol/L (3.3-5.1); Sodium 139 mmol/L (135-145); Total Protein 7.3 g/dL (6.5-8.0)
[2024-04-18 15:00] LABS: TSH reflex Free T4 0.59 uIU/mL (0.32-4.0); Vitamin D 25-OH Total 28.5 ng/mL (>30)
[2024-04-18 15:08] LABS: Folate 14.7 ng/mL (> or = 4.0); Vitamin B12 364 pg/mL (200-900)
== END 2024-04-18 08:58 | disposition home or self-care (01) ==
LOC: HO.CHCLDS 08:57
PROVIDERS: Visit Provider Registered Nurse
DX: G47.9 Sleep disorder, unspecified (principal); R53.83 Other fatigue
CPT/HCPCS: 36415; 80053; 82306; 82533; 82607; 82746; 84443; 85025

== ENCOUNTER 2024-04-19 08:24 | Outpatient (AMB) | payer OTHER, SELFPAY ==
--- NOTE | 2024-04-19 08:32 | MHC.OFFVIS ---
Vital Signs 04/19/24 08:44 Height 5 ft 6 in Weight 215 lb BMI 34.7 Intake Visit Reasons: new prob Rt shoulder pain Intake Note: Hiral is a 34 year old right hand dominant female who presents today for a new problem visit of right shoulder pain. Patient was last seen for her left shoulder on 07/20/23 and an injection was given. Patient reports her pain has been present since the summer time and believes it is caused from overcompensating her left shoulder. 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 States spasms from her ear down to her shoulder and towards her back. No traumatic injury. No previous tx. Finds relief ibuprofen. Allergies No Known Allergies Allergy (Verified 04/19/24 08:34) Medication List - Last Reconciled 04/19/24 by Kandice Ogden PA-C doxepin mg PO ibuprofen mg PO 3XD sumatriptan succinate mg PO HPI HPI new prob Rt shoulder pain: Details: 34 yo female presents to the office today for right shoulder pain. She denies injury, pain has been present for over 6 months. She states she has pain which is worse at night. She is waking up multiple times during the night due to the pain. She has discomfort with bringing her arm to her face. 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 No treatment to date. She had EMG done on 04/09/24 due to ongoing n/t in bilat lower ext. PFSH Surgical History (Updated 07/20/23 @ 14:30 by ALEKSANDAR Miller) Hx of appendectomy Social History (Updated 07/20/23 @ 14:29 by ALEKSANDAR Miller) Current occupational status: employed Current occupation: [employer]/ rt hand Review of Systems Const All systems reviewed & are unremarkable except as noted in HPI and below Physical Exam Const General: cooperative and no acute distress Orientation/consciousness: patient oriented x3 Resp Effort & Inspection: normal respiratory effort and able to speak in complete sentences Cardio Peripheral pulses: Peripheral pulses 2+ throughout Neuro General: patient oriented x3 Extrem Other: Right shoulder normal to inspection she has full range of motion in all planes. She has tenderness over the proximal biceps tendon and a positive Gómez. Neurovascularly intact. Bilat wrist normal to inspection. Tenderness over the carpal canal. Numbness and tingling over the median nerve distribution of the right hand. Able to make a full fist and fully extend all fingers. Positive Tinel's. Office Procedures AMB Joint Injection/Aspiration Joint Injection/Aspiration Primary Site: right shoulder Prep: site was prepped using aseptic technique Injected: 80 mg of, DepoMedrol, with 8 mL of, 1% plain lidocaine and in the subcromial space Approach Used: posterolateral Procedure: The patient tolerated the procedure well and there was some relief with the local anesthesia Coding 51670 - Glenohumeral/Tronchanteric Bursa/Intraarticular Procedure code (CPT) selection complete Results Reviewed Results Reviewed: Xrays were obtained in the office today and personally reviewed by me of the right shoulder shoulder mild ac joint oa EMG/NCS 04/09/[address] Dunn IMPRESSION: Bilateral early stage median neuropathy across carpal tunnel, mildly affecting sensory components. Assessment & Plan Assessment & Plan (1) Bicipital tendinitis, right shoulder: Code(s): M75.21 - Bicipital tendinitis, right shoulder Category: Medical (2) Cervical myofascial pain syndrome: Code(s): M79.18 - Myalgia, other site Category: Medical (3) Bilateral carpal tunnel syndrome: Code(s): G56.03 - Carpal tunnel syndrome, bilateral upper limbs Category: Medical Plan We discussed options today which include physical therapy and steroid injection in the right shoulder. She did consent to right shoulder injection today which she tolerated well. I did place an order for physical therapy to work on range of motion rotator cuff and periscapular stabilization of the right shoulder also to work on some cervical stabilization and range of motion techniques as well. She was also fit for bilateral comfort wrist splints as her EMG was significant for early carpal tunnel syndrome. I we will refer her to our hand providers for further evaluation of her carpal tunnel syndrome. I did explain to her that further treatment on her carpal tunnel may resolve those symptoms however if there is some neck pathology she may have some residual numbness due to this. My hope is that physical therapy will help to resolve this to some extent and also relieve her shoulder pain. If symptoms persist or worsen over the next 6-8 weeks in her right shoulder she will contact our office otherwise follow up as needed. Orders: Orders XR shoulder RT min 2V Today M25.511 - Pain in right shoulder Coding Level of Care Code Est Pt Level 4 (48151) Complex EM visit Add On G2211 Diagnoses Bicipital tendinitis, right shoulder M75.21 Cervical myofascial pain syndrome M79.18 Bilateral carpal tunnel syndrome G56.03 CPT Codes Coding - Joint 7: 16412 - Glenohumeral/Tronchanteric Bursa/Intraarticular ([id number])
[2024-04-19 08:44] VITALS: BMI 34.7
== END 2024-04-19 09:06 | disposition home or self-care (01) ==
PROVIDERS: PCP Registered Nurse; Visit Provider Physician Assistant
DX: M75.21 Bicipital tendinitis, right shoulder (principal); M79.18 Myalgia, other site; G56.03 Carpal tunnel syndrome, bilateral upper limbs
CPT/HCPCS: 20610; 99214

== ENCOUNTER → 2024-04-19 08:26 | Outpatient (BNV) | payer OTHER, SELFPAY | PROVIDERS: Visit Provider Radiology Diagnostic Radiology | DX: M25.511 Pain in right shoulder (principal) | CPT/HCPCS: 73030 ==

== ENCOUNTER 2024-04-19 08:41 | Outpatient (REF) | payer OTHER, SELFPAY ==
--- NOTE | ~2024-04-19 | XR_ITS ---
EXAMINATION: XR SHOULDER, RIGHT CLINICAL INFORMATION: M25.511 - Pain in right shoulder COMPARISON: None. TECHNIQUE: Three views of the right shoulder. FINDINGS: Normal bone mineralization. No fractures, dislocation, or suspicious bone lesion. Normal alignment. Glenohumeral joint appears normal. AC joint appears normal. Mildly laterally downsloping acromion without spur. Subacromial space is preserved. Remainder the bony and soft tissue structures appear normal. XR/XR shoulder RT min 2V IMPRESSION: Normal right shoulder. Electronically signed by: Ronald Major MD 04/19/2024 08:40 AM EST
--- OUTSIDE RECORDS SUMMARY | 2024-04-22 08:57 | XMS_ITS | Clinical Summary ---
Author Organization [facility] Address [address] [place] [address] Phone Care Team Providers Care Medicine Man Name Role Phone Unavailable Primary Care Provider [...] Upcoming Encounters Date Type Department Care Team ([facility] Contact Info) Description 06/20/2024 9:30 AM EDT Consult Orthopedic Surgery - [place] [phone] [phone] Kojo Walker, DPM [address] [address] Health Maintenance Due Date Last Done Comments [...]
--- OUTSIDE RECORDS SUMMARY | 2024-04-22 08:57 | XMS_ITS | Encounter Summary ---
Author Organization [email or web address] [facility] Address [address] [facility] [address] [place] [address] Care Team Providers Care Lcac Radar Operator/Navigator Name Role Phone Rosalia Pillai Primary Care Provider [phone] Encounter Details Date Type Department Care Team (Late Contact Info) Description 06/06/2022 Telephone [facility] MEDICINE [address] [place], [place] [phone] Rosalia Pillai FNP [address] [place], [place] [phone] Social History Tobacco Use Types Packs/Day Years [...] Description 05/03/2024 10:00 AM EST Office Visit [facility] CHC MED & PEDS [address] [place], [place] [phone] Rosalia Pillai FNP [address] [place], [place] [phone] documented as of this encounter Visit Diagnoses Not on filedocumented in this encounter Care Teams Lcac Radar Operator/Navigator Relationship Specialty Start Date End Date Rosalia Pillai FNP [address] [place] [phone] PCP - General Family Medicine 02/17/22 documented as of this encounter
--- OUTSIDE RECORDS SUMMARY | 2024-04-22 08:57 | XMS_ITS | Clinical Summary ---
Author Organization [employer] Address [address] [facility] [address] [place] [address] Care Team Providers Care Party Plan Sales Agent Name Role Phone Rosalia Pillai CARROLL Primary Care Provider [phone] Allergies No known active allergies Medications Magnesium [...] 90 capsule 1 4 03/18/20 25 Active Diclofenac Sodium 1 % gelIndications:Ne ck muscle spasm Apply 1 g topically if needed in the morning, at noon, and at bedtime (pain). 100 g 4 04/07/19 25 Active Problems Problem Noted Date Diagnosed Date Healthcare maintenance 04/23/2023 Overview (03/21/2024): Pap: NILM, HPV neg 07/31/23 Optometry: referral to [facility] Eye Care placed 04/21/23 Dental: referral to [facility] Dental 04/21/23 Last PE: 04/21/23 [...] Encounters Date Type Department Care Team Description 04/21/2024 Telephone [facility] MED & PEDS [address] [place] [address] Rosalia Pillai FNP EMG Results 03/22/2024 Telephone [facility] [address] [place] [phone] Rosalia Pillai FNP 03/18/2024 11:30 AM EST Office Visit [facility] [address] [place] [address] Rosalia Pillai, RAIL MAINTENANCE WORKER Chronic right shoulder pain (Primary Dx); Onychauxis; Callus between toes; Numbness and tingling in both hands; Sleep difficulties; Other fatigue; Healthcare maintenance 03/18/2024 Travel 03/18/2024 Telephone [facility] MED & PEDS [address] [place] [address] Chey Masters MA Chart Prep 03/08/2024 3:40 PM EST Office Visit [facility] WALK[facility] [address] [place] [address] Lucila Malik NP Neck muscle spasm (Primary [...] Description 05/03/2024 10:00 AM EST Office Visit [facility] CHC MED & PEDS [address] [place] [address] Rosalia Pillai FNP [address] [place] [address] Health Maintenance Due Date Last Done Comments Dental Oral Exam 1989 Dental Prophylaxis 1989 Dental X-Ray: Bitewings 1989 Dental X-Ray: Full Mouth 1989 Alcohol/Substance Use Screening 2001 Family Planning (PISQ) 02/15/2004 Hepatitis B Vaccines (1 of 3 - 19+ 3-dose series) 02/15/2008 Depression Monitoring (PHQ-9) 10/20/2023, 04/21/2023 Depression Screening 04/21/2024 04/21/2023, 04/21/2023 SDOH [...] Procedure Name Priority Date/Time Associated Diagnosis Comments CORTISOL RANDOM Routine 04/18/2024 8:58 AM EST Sleep difficulties Other fatigue CBC WITH AUTO DIFFERENTIAL Routine 04/18/2024 8:58 AM EST Sleep difficulties Other fatigue VITAMIN B12/FOLATE, SERUM PANEL Routine 04/18/2024 8:58 AM EST Sleep difficulties Other fatigue VITAMIN D,25-OH,TOTAL,IA Routine 04/18/2024 8:58 AM EST Sleep difficulties Other fatigue COMPREHENSIVE METABOLIC PANEL Routine 04/18/2024 8:58 AM EST Sleep difficulties Other fatigue TSH W/REFLEX TO FT4 Routine 04/18/2024 8 :58 AM EST Sleep difficulties Other fatigue HPV MRNA E6/E7 REFLEX TO HPV 16, [...] Recently Relevant to Health Maintenance Results * Cortisol Random (04/18/2024 8:58 AM EST) Cortisol Random 8.0 ug/dL [facility] Comment:Reference Range*: Be fore 10 am 6.2-19.4 ug/dL After 5 pm 2.3-11.9 ug/dL*Please interpret above results accordingly.This test was performed using the Zapata chemiluminescentmethod. Values obtained from different assay methods cannotbe used interchangeably.Patients receiving fludrocortisone, prednisolone orprednisone may show artificially elevated cortisol valuesdue to cross-reactivity. 04/18/2024 8:58 AM EST 04/18/2024 1:58 PM EST Rosalia Pillai [facility] BLOOD ORDERABLES Final Res ult [facility] [address] [place] [phone] * (ABNORMAL) Vitamin D, 25-Hydroxy, Total, Immunoassay (04/18/2024 8:58 AM EST) Vitamin D 25-OH Total 28.5(L) >30 ng/mL [facility] Comment:Health Based Referen ce Values*< 20 ng/mL Whkkliszw47-11 ng/mL Insufficient> 30 ng/mL Sufficient*Sonu CRUM. N Engl J Med. 2007;357:266-280Care must be taken in interpreting Vitamin D results fromdifferent laboratories and methodologies. Published datademonstrated that results from patients undergoinghemodialysis may show a negative bias when tested withvarious automated 25-OH vitamin D assays when compared toLC-MS/MS.When testing samples from patients whose predominant form ofVitamin D is Vitamin D2, such as patients receiving VitaminD2 supplementation, results that are subtherapeutic shouldbe confirmed with another method such as LC-MS/MS. Blood Venous blood specimen / Unknown 04/18/2024 8:58 AM EST 04/18/2024 2:01 PM EST Rosalia Pillai [facility] BLOOD ORDERABLES Final Res ult Performing Organization Address City/[facility] Co de Phone Number [facility] [address] [place] [phone] * Vitamin B12/Folate, Serum Panel (04/18/2024 8:58 AM EST) Vitamin B12 364 200 - 900 pg/mL [facility] Comment:NORMAL 200-900 PG/ML INDETERMINATE 160-199 PG/ML DEFICIENT < 160 PG/ML Folate 14.7 > or = 4.0 ng/mL [facility] Comment:Reference Values:> o r = 4.0 ng/mL< 4.0 ng/mL suggests folate deficiency Methotrexate, aminopterin and folinic acid(leucovorin) are chemotherapeutic agents whose molecularstructures are similar to folate; therefore, the Architectfolate assay cannot be used for patients using these drugs. Blood Venous blood specimen / Unknown 04/18/2024 8:58 AM EST 04/18/2024 1:58 PM EST us Rosalia Pillai [facility] LAB BLOOD ORDERABLES Final Res ult Performing Organization Address [facility] de Phone Number [facility] [address] [place] [phone] * TSH W/Reflex to FT4 (04/18/2024 8:58 AM EST) TSH reflex Free T4 0.59 0.32 - 4.0 uIU/mL [facility] Blood Venous blood specimen / Unknown 04/18/2024 8:58 AM EST 04/18/2024 2:01 PM EST Rosalia Pillai RAIL MAINTENANCE WORKER LAB BLOOD ORDERABLES Final Res ult Performing Organization Address [facility] Co de Phone Number [facility] [address] [place] [phone] * CBC auto differential (04/18/2024 8:58 AM EST) White Blood Count 6.5 4.8 - 10.8 X10*3/uL [facility] Red Blood Count 4.55 4.20 - 5.50 X10*6/uL [facility] Hemoglobin 13.8 12.0 - 16.0 g/dl [facility] Hematocrit 40.7 37.0 - 47.0 % [facility] Mean Corpuscular Volume 89.5 80.0 - 98.0 fL [facility] Mean Corpuscular Hemoglobin 30.3 27.0 - 33.0 pg [facility] Mean Corpuscular HGB Conc 33.9 31.0 - 35.0 g/dl [facility] Red Cell Distribution Width 12.6 11.0 - 16.0 % [facility] Platelet Count 170 160 - 400 X10*3/uL [facility] Mean Platelet Volume 11.8 9.4 - 12.3 fL [facility] Neutrophils Percent Auto 64.0 45 - 73 % [facility] Imm Gran Pct Auto 0.2 0.0 - 0.4 % [facility] Lymphocytes Percent Auto 27.5 20 - 40 % [facility] Monocytes Percent Auto 7.2 2 - 11 % [facility] Eosinophils Percent Auto 0.6 0 - 4 % [facility] Basophils Percent Auto 0.5 0 - 2 % [facility] NRBC Pct Auto 0.0 0.0 - 0.2 /100WBC [facility] Neutrophils Absolute Auto 4.2 2.0 - 8.3 x10*3/uL [facility] Imm Gran Abs Auto 0.01 0.00 - 0.03 X10*3/uL [facility] Lymphocytes Absolute Auto 1.8 1.2 - 4.9 X10*3/uL [facility] Monocytes Absolute Auto 0.5 0.1 - 1.2 X10*3/uL [facility] Eosinophils Absolute Auto 0.0 0.0 - 0.4 X10*3/uL [facility] Basophils Absolute Auto 0.0 0.0 - 0.2 X10*3/uL [facility] NRBC Abs Auto 0.000 0.0 - 0.012 X10*3/uL [facility] Blood Venous blood specimen / Unknown 04/18/2024 8:58 AM EST 04/18/2024 1:58 PM EST us Rosalia Pillai RAIL MAINTENANCE WORKER LAB BLOOD ORDERABLES Final Res ult [facility] [address] [place], [place] [phone] * (ABNORMAL) Comprehensive Metabolic Panel (04/18/2024 8:58 AM EST) Sodium 139 135 - 145 mmol/L [facility] Potassium 4.5 3.3 - 5.1 mmol/L [facility] Chloride 109(H) 96 - 108 mmol/L [facility] Carbon Dioxide 25 22 - 29 mmol/L [facility] Anion Gap 10(L) 12 - 20 [facility] Urea Nitrogen (BUN) 14 9 - 16 mg/dL [facility] Creatinine, Serum 0.77 0.5 - 1.4 mg/dL [facility] Estimated Glomerular Filt Rate >60 [facility] Comment:Chronic Kidney Disea se: Estimated GFR < 60 mL/min/1.48r4Pxnqct Kidney Disease: Estimated GFR < 15 mL/min/1.73m2 Glucose 91 60 - 115 mg/dL [facility] Calcium 8.8 8.4 - 10.2 mg/dL [facility] Bilirubin, Total 0.6 0.0 - 1.0 mg/dL [facility] Aspartate Amino Transferase 28 5 - 31 U/L [facility] Alanine Aminotransferase 23 0 - 31 U/L [facility] Total Protein 7.3 6.5 - 8.0 g/dL [facility] Albumin Level 4.0 3.5 - 5.0 g/dL [facility] Alkaline Phosphatase 52 39 - 117 U/L [facility] Blood Venous blood specimen / Unknown 04/18/2024 8:58 AM EST 04/18/2024 2:01 PM EST Rosalia Pillai RAIL MAINTENANCE WORKER LAB BLOOD ORDERABLES Final Res ult [facility] [address] [place] [address] [phone] * Pap with NG,CT,Trich (07/31/2023 9:51 AM EDT) Trichomonas (NAAT) NOT DETECTED NOT DETECTED [facility] Comment:The analytical perfo rmance characteristics of thisassay have been determined by [employer]. Themodifications have not been cleared or approved bythe FDA. This assay has been validated pursuant to theCLIA regulations and is used for clinical purposes.For additional information, please refer tohttp://education.Your Dollar Matters/faq/Trichomonastma(This link is being provided for information/educational purposes only.)THIS TEST WAS PERFORMED AT:[facility] [place] [phone] FRANK MD CTNG Ref Lab NOT DETECTED NOT DETECTED [facility] NG Ref Lab NOT DETECTED NOT DETECTED [facility] Pap Vial Vaginal structure / Unknown 07/31/2023 9:51 AM EDT 08/04/2023 12:13 PM EDT Narrative [facility] - 08/08/2023 1:42 PM EDT Was previous PAP abnormal? NoClinical Information: NoneCollection Date: [id number]: [id number] by: CHEY ERAZOource: Vagina us Rosalia Pillai RAIL MAINTENANCE WORKER LAB CYTOLOGY ORDERABLES Final Result [facility] [address] [place] [address] [phone] * HPV mRNA E6/E7 w/Reflex to HPV Genotypes 16, 18/45 (07/31/2023 9:51 AM EDT) HPV nRNA E6/E7 Not Detected Not Detected [facility] Comment:Methodology: Transcr iption-Mediated AmplificationThis assay detects E6/E7 viral messenger RNA (mRNA) from 14high-risk HPV types (16,18,31,33,35,39,45,51,52,56,58,59,66,68).Cervical sources are required for HPV testing.If a vaginal source from a patient who has had atotal hysterectomy with removal of cervix wassubmitted, please contact the testing laboratoryfor alternative testing options.For additional information, please refer tohttp://education.[employer]/faq/PFV067n4(This link if provided for information/educational purposes only.)THIS TEST WAS PERFORMED AT:[facility] [place] [phone] FRANK MD HPV mRNA E6/E7 [facility] HPV 16 RNA [facility] HPV 18/45 RNA [facility] 07/31/2023 9:51 AM EDT 08/01/2023 8:45 AM EDT Rosalia Pillai [facility] CYTOLOGY ORDERABLES Final Result [facility] [address] [place] [phone] * Hepatitis C Viral RNA, Quantitative, Real-Time PCR (04/24/2023 10:36 AM EST) Hepatitis C Viral Load <15 NOT DETECTED NOT DETECTED IU/mL [facility] HCV Log PCR <1.18 NOT DETECTED NOT DETECTED Log IU/mL [facility] Comment:This test was perfor med using Real-Time Polymerase ChainReaction.Reportable Range: 15 IU/mL to 100,000,000 IU/mL(1.18 Log IU/mL to 8.00 Log IU/mL).The analytical performance characteristics of thisassay have been determined by [employer].The modifications have not been cleared or approved bythe FDA. This assay has been validated pursuant to theCLIA regulations and is used for clinical purposes.For more information on this test, go to:http://education.walkby.Every1Mobile/faq/NZJ50m0(This link is being provided for informational/educational purposes only.)THIS TEST WAS PERFORMED AT:[facility] [place] [phone] FRANK MD Blood 04/24/2023 10:3 6 AM EST 04/24/2023 11:23 AM EST Rosalia Pillai RAIL MAINTENANCE WORKER LAB BLOOD ORDERABLES Final Res ult Performing Organization Address [facility]/ZIP Co de Phone Number [facility] [address] [place] [phone] * HIV-1/2 Antigen and Antibodies, Fourth Generation, with Reflexes (04/24/2023 10:36 AM EST) HIV AB/AG Nonreactive Nonreactive [facility] Comment:HIV-1 p24 Ag and/or HIV-1/HIV-2 Ab not detected.A test result that is nonreactive does not exclude thepossibility of exposure to or infection with HIV-1 and/orHIV-2. Nonreactive results in this assay for individualswith prior exposure to HIV-1 and/or HIV-2 may be due toantigen and antibody levels that are below the limit ofdetection of this assay.The [employer] HIV Ag/Ab Combo assay result andsupplemental assay results should be interpreted inconjunction with the patient's clinical presentation,history and other laboratory results. If the results areinconsistent with clinical evidence, additional testing issuggested to confirm the result. Blood Venous blood specimen / Unknown 04/24/2023 10:36 AM EST 04/24/2023 11:23 AM EST Rosalia Antoninoeyad RAIL MAINTENANCE WORKER LAB BLOOD ORDERABLES Final Res ult Performing Organization Address [facility]/ZIP Co de Phone Number [facility] [address] [place] [phone] * Lipid Panel, Standard (04/24/2023 10:36 AM EST) Triglycerides 103 <150 mg/dL [facility] Comment:Desirable Triglyceri de: less than 150 mg/dLBorderline High Triglyceride 150-199 mg/dLHigh Triglyceride: 200-499 mg/dLVery High Triglyceride: greater than or equal to 5OO mg/dL Cholesterol 165 <200 mg/dL [facility] Comment:Desirable Cholestero l: less than 200 mg/dLBorderline High Cholesterol: 200-239 mg/dLHigh Cholesterol: greater than 239 mg/dL LDL Cholesterol Calculated 84 <100 mg/dL [facility] Comment:Desirable LDL: less than 100 mg/dLNear Optimal/Above Optimal LDL: 110- 129 mg/dLBorderline High LDL: 130-159 mg/dLHigh LDL: 160-189 mg/dLVery High LDL: greater than or equal to 190 mg/dL HDL Cholesterol 61 >40 mg/dL [facility] Comment:Desirable HDL: great er than 40 mg/dL Note: This HDL assay may give artificially low results in patients with liver disease. Blood Venous blood specimen / Unknown 04/24/2023 10:36 AM EST 04/24/2023 11:23 AM EST us Rosalia Pillai [facility] BLOOD ORDERABLES Final Res ult [facility] [address] [place] [phone] from Last 3 Months or Most Recently Relevant to [place] [phone] [facility] - [facility] FULL (MEDICAID) Care Teams Party Plan Sales Agent Relationship Specialty Start Date End Date Rosalia Pillai FNP [address] [place] [phone] PCP - General Family Medicine 02/17/22
--- OUTSIDE RECORDS SUMMARY | 2024-04-22 08:57 | XMS_ITS | Encounter Summary ---
Author Organization [employer] Address [address] [facility] [address] [place] [address] Care Team Providers Care Bilingual Recruiter Name Role Phone Rosalia Pillai Primary Care Provider [phone] Reason for Visit * Reason Onset Date Comments EMG Results 04/21/2024 Encounter Details Date Type Department Care Team ([facility] Contact Info) Description 04/21/2024 Telephone [facility] [address] [place] [address] Rosalia Pillai FNP [address] [place] [address] EMG Results Social History Tobacco Use Types Packs/Day Years [...] AM EST documented as of this encounter Miscellaneous Notes * Telephone Encounter - CARROLL Díaz - 04/21/2024 3:11 PM EST ADD: already referred to hand surgeon through [facility] Ortho, and wrist splints sent during ortho consult 04/19/24. Will remove from team RN inbox. * Telephone Encounter - CARROLL Díaz - 04/21/2024 3:04 PM EST Please call Hiral to let her know that I have reviewed the results of the nerve conduction study ofboth arms, and it did demonstrate the beginning stages of bilateral carpal tunnel syndrome. We can either start by trying wrist splints at night to help alleviate some of the pain and pressure, or I can refer her directly to the hand specialist for consideration of other options. Please let me know which she would be interested in. Thanks! documented in this encounter Plan of Treatment Upcoming Encounters Date Type Department Care Team (Late st Contact Info) Description 05/03/2024 10:00 AM EST Office Visit [facility] [address] [place] [address] Rosalia Pillai FNP [address] [place] [address] documented as of this encounter Visit Diagnoses Not on filedocumented in this encounter Additional Health Concerns Assessment Noted Time PHQ-9 Depression Total Score: 15 024 9:46 AM EST documented as of this encounter Care Teams Bilingual Recruiter Relationship Specialty Start Date End Date Rosalia Pillai FNP [address] [place] [address] PCP - General Family Medicine 02/17/22 documented as of this encounter
== END 2024-04-19 08:42 | disposition home or self-care (01) ==
LOC: HO.HOSX 08:41
PROVIDERS: Visit Provider Physician Assistant
DX: M25.511 Pain in right shoulder (principal); M75.21 Bicipital tendinitis, right shoulder; M79.18 Myalgia, other site; G56.03 Carpal tunnel syndrome, bilateral upper limbs
CPT/HCPCS: 20610; 73030; 99212; J1010; J2003

== ENCOUNTER 2024-06-28 13:18 | Outpatient (REF) | payer SELFPAY ==
--- OUTSIDE RECORDS SUMMARY | 2024-06-28 13:43 | XMS_ITS | Encounter Summary ---
Author Organization [employer] [facility] Address [address] [place] [address] 7[address] [place] [address] Care Team Providers Care Diversity Intern Name Role Phone Rosalia Pillai Primary Care Provider [phone] Encounter Details Date Type Department Care Team (Late st Contact Info) Description 06/06/[address] [facility] [address] [place] [address] Rosalia Pillai FNP [address] [place] [address] Social History Tobacco Use Types Packs/Day Years [...] as of this encounter Plan of Treatment Not on file documented as of this encounter Visit Diagnoses Not on filedocumented in this encounter Care Teams Diversity Intern Relationship Specialty Start Date End Date Rosalia Pillai FNP [address] [place] [address] PCP - General Family Medicine 02/17/22 documented as of this encounter
--- OUTSIDE RECORDS SUMMARY | 2024-06-28 13:43 | XMS_ITS | Clinical Summary ---
Author Organization [employer] Address [address] [facility] 7t [place] [address] Care Team Providers Care Director Of Development Name Role Phone Rosalia Pillai CARROLL Primary Care Provider [phone] Allergies No known active allergies Medications SUMAtriptan (Imitrex) 25 MG tabletIndications :Other migraine [...] 90 capsule 1 4 03/18/20 25 Active baclofen (Lioresal) 10 MG tabletIndications :Neck muscle spasm Take one tablet TID PRN 30 tablet 2 5 Active famotidine (Pepcid) 20 MG tabletIndications :Gastroesophageal reflux disease, unspecified whether esophagitis present Take 1 tablet (20 mg) by mouth 2 times daily. 180 tablet 3 5 05/03/19 26 Active lidocaine (Lidoderm) 5 % patchIndications: Bicipital tendinitis, right shoulder Apply 1 patch topically if needed each day for moderate pain. Remove & discard patch within 12 hours or as directed by . 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 Conservative management: wrist splints with good response Assessment & Plan (05/06/2024 11:56 AM EST): Scheduled for upcoming consult with [facility] Ortho - hand specialist Vitamin D insufficiency 05/06/2024 Overview (05/06/2024): Lab Results Component Value Date [id number] 28.5 (L) 04/18/2024 - Plan to start OT Vit D supplement Apr 2024 Bicipital tendinitis, right shoulder 05/06/2024 Overview (05/06/2024): Followed by [facility]o S/p shoulder injection Mar 2024 Referred to physical therapy Assessment & Plan (05/06/2024 12:02 PM EST): - Initial physical therapy consult pending - Symptoms aggravated by repetitive movement and heavy lifting at work - reports able to tolerate as long as work day maximum 10 hours - letter generated. Sleep difficulties 05/06/2024 Assessment & Plan (05/06/2024 12:04 PM EST): - Good response to doxepin 10mg nightly, denies med SE - Previous tx: magnesium - Cont sleep hygiene interventions Healthcare maintenance 04/23/2023 Overview (03/21/2024): Pap: NILM, HPV neg 07/31/23 Optometry: referral to [facility] Eye Care placed 04/21/23 Dental: referral to [facility] Dental 04/21/23 Last PE: 04/21/23 [...] Encounters Date Type Department Care Team Description 05/03/2024 10:00 AM EST Office Visit [facility] [address] [place] [address] Rosalia Pillai FNP Epigastric abdominal pain (Primary Dx); Neck muscle spasm; Gastroesophageal reflux disease, unspecified whether esophagitis present; Bilateral carpal tunnel syndrome; Vitamin D insufficiency; Bicipital tendinitis, right shoulder; Sleep difficulties 05/03/2024 Travel 05/02/2024 Telephone [facility] [address] [place] [address] Chey Masters MA Chart Prep 04/24/[address] [facility] [address] [place] [address] [phone] Zulma Crow RN 04/21/2024 Telephone [facility] [address] [place] [address] Rosalia Pillai FNP EMG Results from Last 3 Months Immunizations Name Administration [...] Answer Date Recorded Patient Health Questionnaire-9 Score 8 05/03/2024 Patient Health Questionnaire-9 Score 8 05/03/2024 Last PHQ-9: Questionnaire Data Not on file 0 05/03/2024 Housing Stability Answer Date Recorded What is your housing situation today? I have sebastián savage 05/03/[address] you li ve. Do you have problems with any of the following? None of the above 05/03/2024 Food Insecurity Answer Date Recorded Within the past 12 months, y ou worried that your food would run out before you got money to buy more: Never True 05/03/2024 Within the past 12 months,th e food you bought just didn't last and you didn't have enough money to get more: Never True Transportation Answer Date Recorded In the past 12 months, has l ack of transportation kept you from medical appts, meetings, work or from getting things needed for daily living? No 05/03/2024 Utilities Answer Date Recorded In the past 12 months, has t he electric, gas, oil or water company threatened to shut off services in your home? No 05/03/2024 Depression Answer Date Recorded Patient Health Questionnaire-2 Score 2 05/03/2024 Internet Access Answer Date Recorded Internet Access Q1 Yes 05/03/2024 Internet Access Q2 Not on file 05/03/2024 Comments Unknown Sex and Gender Information Value Date Recorded Sex Assigned at Female 01/17/2022 10:40 AM EDT Legal Sex Female 10:40 AM EDT Gender Identity Female 01/17/2022 10:40 AM EDT Sexual Orientation Straight 03/18/2024 9: 55 AM EST Last Filed Vital Signs Vital Sign Reading Time Taken Comments Blood Pressure 115/72 05/03/2024 10:07 AM EST Pulse 64 05/03/2024 10:07 AM EST Temperature 36.6 ??C (97.9 ??F) 05/03/2024 10:[address] Respiratory Rate 18 05/03/2024 10:07 AM EST Oxygen Saturation 98% 05/03/2024 10:07 AM EST Inhaled Oxygen Concentration - - Weight 98.1 kg (216 lb 3.2 oz) 05/03/2024 10:07 AM EST Height 167.6 cm (5' 6 ) 05/03/2024 10:07 AM EST Body Mass Index 34.9 05/03/2024 10:07 AM EST Plan of Treatment Health Maintenance Due Date Last Done Comments Dental Oral Exam 1989 Dental Prophylaxis 1989 Dental X-Ray: Bitewings 1989 Dental X-Ray: Full Mouth 1989 Alcohol/Substance Use Screening 2001 Family Planning (PISQ) 02/15/2004 Hepatitis B Vaccines (1 of 3 - 19+ 3-dose series) 02/15/2008 Tobacco Screening 07/30/2024 07/31/2023 Influenza Vaccine (#1) 2024 , 12/15/2017 Postponed from 11/19/2023 (Patient Refused) COVID-19 Vaccine (3 - 2023-2 5 season) 2025 04/07/2020, 03/17/2020 Postponed from 11/19/2023 (Patient Refused) Depression Screening 05/03/2025 05/03/2024, 05/03/2024 SDOH Screening 05/03/2025 05/03/2024 Pap Smear 07/30/2026 07/31/2023, 07/31/2023 DTaP/Tdap/Td Vaccines [...] 8:58 AM EST) Cortisol Random 8.0 ug/dL [facility] Comment:Reference Range*: Be fore 10 am 6.2-19.4 ug/dL After 5 pm 2.3-11.9 ug/dL*Please interpret above results accordingly.This test was performed using the Betify chemiluminescentmethod. Values obtained from different assay methods cannotbe used interchangeably.Patients receiving fludrocortisone, prednisolone orprednisone may show artificially elevated cortisol valuesdue to cross-reactivity. 04/18/2024 8:58 AM EST 04/18/2024 1:58 PM EST us Rosalia Pillai [facility] BLOOD ORDERABLES Final Res ult [facility] [address] [place] [address] [phone] * (ABNORMAL) Vitamin D, 25-Hydroxy, Total, Immunoassay (04/18/2024 8:58 AM EST) Vitamin D 25-OH Total 28.5(L) >30 ng/mL [facility] Comment:Health Based Referen ce Values*< 20 ng/mL [id number] ng/mL Insufficient> 30 ng/mL Sufficient*Sonu CRUM. N [...] EST 04/18/2024 2:01 PM EST Rosalia Pillai [facility] BLOOD ORDERABLES Final Res ult Performing Organization Address [facility] Co de Phone Number [facility] [address] [place] [phone] * Vitamin B12/Folate, Serum Panel (04/18/2024 8:58 AM EST) Vitamin B12 364 200 - 900 pg/mL [facility] Comment:NORMAL 200-900 PG/ML INDETERMINATE 160-199 PG/ML DEFICIENT < 160 PG/ML Folate 14.7 > or = 4.0 ng/mL [facility] Comment:Reference Values:> o r = 4.0 ng/mL< 4.0 ng/mL suggests folate deficiency Methotrexate, aminopterin and folinic acid(leucovorin) are chemotherapeutic agents whose molecularstructures are similar to folate; therefore, the Architectfolate assay cannot be used for patients using these drugs. Blood Venous blood specimen / Unknown 04/18/2024 8:58 AM EST 04/18/2024 1:58 PM EST Rosalia Pillai [facility] BLOOD ORDERABLES Final Res ult Performing Organization Address [facility] Co de Phone Number [facility] [address] [place] [phone] * TSH W/Reflex to FT4 (04/18/2024 8:58 AM EST) TSH reflex Free T4 0.59 0.32 - 4.0 uIU/mL [facility] Blood Venous blood specimen / Unknown 04/18/2024 8:58 AM EST 04/18/2024 2:01 PM EST us Rosalia Pillai [facility] BLOOD ORDERABLES Final Res ult [facility] [address] [place], [place] [phone] * CBC auto differential (04/18/2024 8:58 AM EST) White Blood Count 6.5 4.8 - 10.8 X10*3/uL [facility] Red Blood Count 4.55 4.20 - 5.50 X10*6/uL [facility] Hemoglobin 13.8 12.0 - 16.0 g/dl [facility] Hematocrit 40.7 37.0 - 47.0 % [facility] Mean Corpuscular Volume 89.5 80.0 - 98.0 fL [facility] Mean Corpuscular Hemoglobin 30.3 27.0 - 33.0 pg [facility] Mean Corpuscular HGB Conc 33.9 31.0 - 35.0 g/dl [facility] Red Cell Distribution Width 12.6 11.0 - 16.0 % [facility] Platelet Count 170 160 - 400 X10*3/uL [facility] Mean Platelet Volume 11.8 9.4 - 12.3 fL [facility] Neutrophils Percent Auto 64.0 45 - 73 % [facility] Imm Gran Pct Auto 0.2 0.0 - 0.4 % [facility] Lymphocytes Percent Auto 27.5 20 - 40 % [facility] Monocytes Percent Auto 7.2 2 - 11 % [facility] Eosinophils Percent Auto 0.6 0 - 4 % [facility] Basophils Percent Auto 0.5 0 - 2 % [facility] NRBC Pct Auto 0.0 0.0 - 0.2 /100WBC [facility] Neutrophils Absolute Auto 4.2 2.0 - 8.3 x10*3/uL [facility] Imm Gran Abs Auto 0.01 0.00 - 0.03 X10*3/uL [facility] Lymphocytes Absolute Auto 1.8 1.2 - 4.9 X10*3/uL [facility] Monocytes Absolute Auto 0.5 0.1 - 1.2 X10*3/uL [facility] Eosinophils Absolute Auto 0.0 0.0 - 0.4 X10*3/uL [facility] Basophils Absolute Auto 0.0 0.0 - 0.2 X10*3/uL [facility] NRBC Abs Auto 0.000 0.0 - 0.012 X10*3/uL [facility] Blood Venous blood specimen / Unknown 04/18/2024 8:58 AM EST 04/18/2024 1:58 PM EST us Rosalia Antoninoeyad CARDIOLOGY RN LAB BLOOD ORDERABLES Final Res ult [facility] [address] [place] [phone] * (ABNORMAL) Comprehensive Metabolic Panel (04/18/2024 8:58 AM EST) Sodium 139 135 - 145 mmol/L [facility] Potassium 4.5 3.3 - 5.1 mmol/L [facility] Chloride 109(H) 96 - 108 mmol/L [facility] Carbon Dioxide 25 22 - 29 mmol/L [facility] Anion Gap 10(L) 12 - 20 [facility] Urea Nitrogen (BUN) 14 9 - 16 mg/dL [facility] Creatinine, Serum 0.77 0.5 - 1.4 mg/dL [facility] Estimated Glomerular Filt Rate >60 [facility] Comment:Chronic Kidney Disea se: Estimated GFR < 60 mL/min/1.72l9Sfafmn Kidney Disease: Estimated GFR < 15 mL/min/1.73m2 Glucose 91 60 - 115 mg/dL [facility] Calcium 8.8 8.4 - 10.2 mg/dL [facility] Bilirubin, Total 0.6 0.0 - 1.0 mg/dL [facility] Aspartate Amino Transferase 28 5 - 31 U/L [facility] Alanine Aminotransferase 23 0 - 31 U/L [facility] Total Protein 7.3 6.5 - 8.0 g/dL [facility] Albumin Level 4.0 3.5 - 5.0 g/dL [facility] Alkaline Phosphatase 52 39 - 117 U/L [facility] Blood Venous blood specimen / Unknown 04/18/2024 8:58 AM EST 04/18/2024 2:01 PM EST Rosalia Pillai [facility] BLOOD ORDERABLES Final Res ult Performing Organization Address [facility] de Phone Number [facility] [address] [place] [address] [phone] * Pap with NG,CT,Trich (07/31/2023 9:51 AM EDT) [facility] Signature Trichomonas (NAAT) NOT DETECTED NOT DETECTED [facility] Comment:The analytical perfo rmance characteristics of thisassay have been determined by [employer]. Themodifications have not been cleared or approved bythe FDA. This assay has been validated pursuant to theCLIA regulations and is used for clinical purposes.For additional information, please refer tohttp://education.[employer]/faq/Trichomonastma(This link is being provided for information/educational purposes only.)THIS TEST WAS PERFORMED AT:[employer] [place] [phone] FRANK MD CTNG Ref Lab NOT DETECTED NOT DETECTED [facility] NG Ref Lab NOT DETECTED NOT DETECTED [facility] Pap Vial Vaginal structure / Unknown 07/31/2023 9:51 AM EDT 08/04/2023 12:13 PM EDT Narrative [facility] - 08/08/2023 1:42 PM EDT Was previous PAP abnormal? NoClinical Information: NoneCollection Date: [id number]: [id number] by: CHEY Shannon: Vagina Rosalia Pillai CARDIOLOGY RN LAB CYTOLOGY ORDERABLES Final Result Performing Organization Address [facility]/ZIP Co de Phone Number [facility] [address] [place] [address] [phone] * HPV mRNA E6/E7 w/Reflex to HPV Genotypes 16, 18/45 (07/31/2023 9:51 AM EDT) HPV nRNA E6/E7 Not Detected Not Detected [facility] Comment:Methodology: Transcr iption-Mediated AmplificationThis assay detects E6/E7 viral messenger RNA (mRNA) from 14high-risk HPV types (16,18,31,33,35,39,45,51,52,56,58,59,66,68).Cervical sources are required for HPV testing.If a vaginal source from a patient who has had atotal hysterectomy with removal of cervix wassubmitted, please contact the testing laboratoryfor alternative testing options.For additional information, please refer tohttp://education.[employer]Def[employer]/faq/ZAS251i0(This link if provided for information/educational purposes only.)THIS TEST WAS PERFORMED AT:[facility] [place] [phone] FRANK MD HPV mRNA E6/E7 [facility] HPV 16 RNA [facility] HPV 18/45 RNA [facility] 07/31/2023 9:51 AM EDT 08/01/2023 8:45 AM EDT Rosalia Pillai [facility] CYTOLOGY ORDERABLES Final Result [facility] [address] [place] [phone] * Hepatitis C Viral RNA, Quantitative, Real-Time PCR (04/24/2023 10:36 AM EST) Pathologist [facility] Hepatitis C Viral Load <15 NOT DETECTED NOT DETECTED IU/mL [facility] HCV Log PCR <1.18 NOT DETECTED NOT DETECTED Log IU/mL [facility] Comment:This test was perfor med using Real-Time Polymerase ChainReaction.Reportable Range: 15 IU/mL to 100,000,000 IU/mL(1.18 Log IU/mL to 8.00 Log IU/mL).The analytical performance characteristics of thisassay have been determined by [employer].The modifications have not been cleared or approved bythe FDA. This assay has been validated pursuant to theCLIA regulations and is used for clinical purposes.For more information on this test, go to:http://education.[employer]Defender/faq/OMT00g1(This link is being provided for informational/educational purposes only.)THIS TEST WAS PERFORMED AT:[facility] [place] [phone] FRANK MD Blood 04/24/2023 10:3 6 AM EST 04/24/2023 11:23 AM EST Rosalia Pillai [facility] LAB BLOOD ORDERABLES Final Res ult [facility] [address] [place] [phone] * HIV-1/2 Antigen and Antibodies, Fourth Generation, with Reflexes (04/24/2023 10:36 AM EST) Pathologist [facility] HIV AB/AG Nonreactive Nonreactive [facility] Comment:HIV-1 p24 Ag and/or HIV-1/HIV-2 Ab not detected.A test result that is nonreactive does not exclude thepossibility of exposure to or infection with HIV-1 and/orHIV-2. Nonreactive results in this assay for individualswith prior exposure to HIV-1 and/or HIV-2 may be due toantigen and antibody levels that are below the limit ofdetection of this assay.The [employer] HIV Ag/Ab Combo assay result andsupplemental assay results should be interpreted inconjunction with the patient's clinical presentation,history and other laboratory results. If the results areinconsistent with clinical evidence, additional testing issuggested to confirm the result. Blood Venous blood specimen / Unknown 04/24/2023 10:36 AM EST 04/24/2023 11:23 AM EST us Rosalia Pillai CARDIOLOGY RN LAB BLOOD ORDERABLES Final Res ult Performing Organization Address [facility] Co de Phone Number [facility] [address] [place] [address] [phone] * Lipid Panel, Standard (04/24/2023 10:36 AM EST) Triglycerides 103 <150 mg/dL [facility] Comment:Desirable Triglyceri de: less than 150 mg/dLBorderline High Triglyceride 150-199 mg/dLHigh Triglyceride: 200-499 mg/dLVery High Triglyceride: greater than or equal to 5OO mg/dL Cholesterol 165 <200 mg/dL [facility] Comment:Desirable Cholestero l: less than 200 mg/dLBorderline High Cholesterol: 200-239 mg/dLHigh Cholesterol: greater than 239 mg/dL LDL Cholesterol Calculated 84 <100 mg/dL [facility] Comment:Desirable LDL: less than 100 mg/dLNear Optimal/Above Optimal LDL: 110- 129 mg/dLBorderline High LDL: 130-159 mg/dLHigh LDL: 160-189 mg/dLVery High LDL: greater than or equal to 190 mg/dL HDL Cholesterol 61 >40 mg/dL [facility] Comment:Desirable HDL: great er than 40 mg/dL Note: This HDL assay may give artificially low results in patients with liver disease. Blood Venous blood specimen / Unknown 04/24/2023 10:36 AM EST 04/24/2023 11:23 AM EST us Rosaliaeliazar Pillai CARDIOLOGY RN LAB BLOOD ORDERABLES Final Res ult Performing Organization Address [facility]/ZIP Co de Phone Number [facility] [address] [place] [address] [phone] from Last 3 Months or Most Recently Relevant to Health Maintenance Insurance [facility] BCBS PPO DENTAL - HSN FULL (MEDICAID) Care Teams Director Of Development Relationship Specialty Start Date End Date Rosalia Pillai FNP [address] [place] [address] PCP - General Family Medicine 02/17/22
--- OUTSIDE RECORDS SUMMARY | 2024-06-28 13:43 | XMS_ITS | Clinical Summary ---
Author Organization [address] [place] [address] [place] [phone] Phone Care Team Providers Care Solution Design And Analysis Manager Name Role Phone Unavailable Primary Care Provider Unavailabl e Allergies No known active allergies Medications ibuprofen (ADVIL,MOTRIN) 600 mg tablet Take 600 mg by mouth every 6 hours as needed. Active omeprazole magnesium (PRILOSEC ORAL) Take by mouth. Active Encounters Date Type Department Care Team Description 06/20/2024 9:30 AM EDT Consult Orthopedic Surgery [facility] [address] [place] [phone] Kojo Walker DPM Acquired hammer toe of right foot (Primary Dx); Onychogryphosis; Corns and callosities; Dermatophytosis of nail from Last 3 Months Social History Tobacco Use Types Packs/Day Years Used Date Smoking Tobacco: Never Assessed Comments Unknown Sex and Gender Information Value Date Recorded Sex Assigned at Not on file Legal Sex Female 10:13 AM EST Gender Identity Not on file Sexual Orientation Not on file Last Filed Vital Signs Vital Sign Reading Time Taken Comments Blood Pressure - - Pulse - - Temperature - - Respiratory Rate - - Oxygen Saturation - - Inhaled Oxygen Concentration - - Weight 97.1 kg (214 lb) 06/20/2024 9:45 AM EDT Height 167.6 cm (5' 6 ) 06/20/2024 9:45 AM EDT Body Mass Index 34.54 06/20/2024 9:45 AM EDT Plan of Treatment Health Maintenance Due Date Last Done Comments Hepatitis B Vaccines (1 of 3 - 19+ 3-dose series) 02/15/2008 Cervical Cancer Screening: P ap Smear 2010 Hepatitis C Screening 02/15/2022 Social Influencers of Health Screening 02/15/2022 COVID-19 Vaccine (3 - 2023-2 5 season) 2023 04/07/2020, 03/17/2020 Influenza Vaccine (Season Ended) 2024 12/24/2019, 12/15/2017 Depression Screening 05/03/2025 05/03/2024 DTaP,Tdap,and Td Vaccines (3 - Td or Tdap) 04/20/2028 04/20/2018, 09/18/2015 Cholesterol Screening (Lipid Panel) 04/24/2028 04/24/2023, 11/05/2018 HIV Screening Completed 04/24/2023 HIB Vaccines Aged Out No longer eligi [...] patient's age to complete this topic Meningococcal B Vaccine Aged Out No l onger eligible based on patient's age to complete this topic Pneumococcal Vaccine: Pediatrics (0 to 5 Years) and At-Risk Patients (6 to 64 Years) Aged Out No longer eligible b ased on patient's age to complete this topic RSV Immunization Patients Under 20 months Aged Out No longer eligible b ased on patient's age to complete this topic Varicella Vaccines Aged Out No longer eligible based on patient's age to complete this topic Insurance [place] [id number]
--- OUTSIDE RECORDS SUMMARY | 2024-06-28 13:43 | XMS_ITS | Clinical Summary ---
Author Organization [facility] Address [address] [place] [address] Care Team Providers Care Propulsion Engineer Name Role Phone Silas Ramirez Primary Care Provider [phone] Source Comments PLEASE NOTE, if this patient [...] daily 60 mL 0 7 Active prenat.vits,igor,m [id number] per tablet Take 1 Tab by mouth [...] of diabetes. abnormal glucose tolerance of mother ([facility]) 11/05/2018 Overview (11/05/2018): 11/05/18 - Patient was informed that she had glucose intolerance in her 5th trimester of . She is two months post- and was told by a provider that she now has type II diabetes. Class 3 severe obesity due t o excess calories with body mass index (BMI) of 40.0 to 44.9 in adult ([facility]) 09/18/2015 Overview (11/05/2018): 11/05/18 - Patient gave to her first child 2 months ago, is not currently , and has been struggling to obtain exercise regularly given the infant. Body mass index is 41.34 kg/m??. Counseled on improvement to her Type II diabetes if she loses weight through regular exercise and diet, which she has been adherent too since month 5 of her , when she was determined to have glucose intolerance. Also counseled today on the [facility]'s childcare program, which she will be able to attend in 1 month, when her baby reaches 3 months old. Informed about the wellness center today as well, should the [facility] not work out for her. Gallstones 09/18/2015 Dysmenorrhea 09/18/2015 Immunizations Immunization Administration Dates Next Due TDAP 09/18/2015 Family [...] Health Maintenance Due Date Last Done Comments Anxiety Screening 1989 HPV Screening 1989 Hepatitis C Screening 1989 Tobacco Screening 1989 Imm-Hepatitis B (1 of 3 - 19 + 3-dose series) 02/15/2008 Pap Smear 09/17/2018 09/18/2015 Annual Preventive Care Visit 12/04/2018 12/04/2017 Relationship Safety Screening/Counseling 12/04/2018 12/04/2017 Cervical Cancer Screening 01/17/2023 Pap + HPV 01/17/2023 01/17/2018 [id number] () 11/19/2023 Imm-Influenza (#1) 2023 12/15/2017 Alcohol and Drug Screen 03/20/2024 12/05/19 18, 09/18/2015, 09/18/2015 Depression Annual Screen 03/20/2024 12/04/2017, 0703/2015 Diabetes Screening 11/12/2024 11/12/2021, 0 11/12/2021, 01/31/2020, [...] AG/AB, 4TH GEN NON-REAC TIVE NON-REAC TIVE Seeder Comment: HIV-1 antigen and HIV-1/HIV-2 antibodies were [...] ?? For additional information please refer to http://education.EMOSpeech/faq/EXF330 (This link is being provided for informational/ educational purposes only.) The performance of this assay has not been clinically validated in patients less than 2 years old. Blood Blood / Unknown 11/18/2021 4 :04 PM EDT 11/18/2021 4:05 PM EDT Mena Oscar [facility]- LAB - BLOOD DRAW Final Re sult [facility] [address] [id number], [facility] [address] [address] * COMPREHENSIVE METABOLIC PANEL (11/12/2021 3:14 PM EDT) Pathologist [facility] GLUCOSE 97 65 - 99 mg/dL Seeder Comment: ?Fasting reference interval UREA NITROGEN (BUN) 16 7 - 25 mg/dL [facility] CREATININE (blood) 0.76 0.50 - 0.97 mg/dL Se[facility] EGFR 107 > OR = 60 mL/min/1 .73m2 Seeder Comment: The eGFR is based on the CKD-EPI 2020 equation. To calculate the new eGFR from a previous Creatinine or Cystatin C result, go to https://www.kidney.org/professionals/ kdoqi/gfr%5Fcalculator BUN/CREATININE RATIO NOT APPLICABLE 6 - 22 [facility] SODIUM 137 135 - 146 mmol/L [facility] POTASSIUM 4.1 3.5 - 5.3 mmol/L [facility] CHLORIDE 102 98 - 110 mmol/L [facility] CARBON DIOXIDE 26 20 - 32 mmol/L [facility] CALCIUM 9.7 8.6 - 10.2 mg/dL [facility] PROTEIN, TOTAL 7.1 6.1 - 8.1 g/dL [facility] ALBUMIN 4.3 3.6 - 5.1 g/dL [facility] GLOBULIN 2.8 1.9 - 3.7 g/dL (calc) [facility] ALBUMIN/GLOBUL IN RATIO 1.5 1.0 - 2.5 (calc) [facility] BILIRUBIN, TOTAL 0.3 0.2 - 1.2 mg/dL [facility] ALKALINE PHOSPHATASE 47 31 - 125 U/L [facility] AST 13 10 - 30 U/L [facility] ALT 18 6 - 29 U/L [facility] Blood Blood / Unknown 11/12/2021 3 :14 PM EDT 11/12/2021 3:15 PM EDT Domo Tovar PA-C LAB - BLOOD DRAW Final Result [facility] [address] [id number], [facility] [address] [address] from Last 3 Months or Most Recently Relevant to Health Maintenance Insurance [employer] Care Teams Propulsion Engineer Relationship Specialty Start Date End Date Silas Ramirez PA [address] [place] [address] PCP - General Internal Medicine 02/15/17
== END 2024-06-28 13:19 | disposition home or self-care (01) ==
LOC: HO.CHCLNP 13:18
PROVIDERS: Visit Provider Registered Nurse
DX: R10.9 Unspecified abdominal pain (principal)
CPT/HCPCS: 87338

== ENCOUNTER 2024-08-23 16:38 | Outpatient (REF) | payer BC, SELFPAY ==
[2024-08-24 07:05] LABS: CT PCR NOT DETECTED (Not Detect.); NG PCR NOT DETECTED (Not Detect.)
[2024-08-24 09:50] LABS: Bacterial Vaginosis PCR POSITIVE (Negative); Candida Group PCR DETECTED (Not Detect); Candida glab krusei PCR NOT DETECTED (Not Detect); Trichomonas vaginalis PCR NOT DETECTED (Not Detect)
== END 2024-08-23 16:39 | disposition home or self-care (01) ==
LOC: HO.HHCLNP 16:38
PROVIDERS: Visit Provider Family Medicine
DX: N30.00 Acute cystitis without hematuria (principal)
CPT/HCPCS: 81515; 87086; 87491; 87591